=== PATIENT | male | born 1990 | race Caucasian/White ===

== ENCOUNTER 2024-01-16 13:59 | Emergency (ER) | payer SELFPAY ==
[2024-01-16 14:00] VITALS: BP 153/104; PULSE 96; RESP 20; TEMP 36.2; O2SAT 98
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
== END 2024-01-16 16:02 | disposition home or self-care (01) ==
PROVIDERS: Emergency Provider Emergency Medicine; Visit Provider Emergency Medicine
DX: L05.91 Pilonidal cyst without abscess (principal)
CPT/HCPCS: 10060; 99283

== ENCOUNTER 2024-02-15 19:01 | Emergency (ER) | payer MEDICAID, SELFPAY ==
[2024-02-15 19:02] VITALS: BP 169/100; PULSE 100; RESP 16; TEMP 36.8; O2SAT 100; BMI 28.8
--- NOTE | 2024-02-15 20:02 | EKG12_ITS ---
Test Reason : MHC Blood Pressure : / mmHG Vent. Rate : 080 BPM Atrial Rate : 080 BPM P-R Int : 176 ms QRS Dur : 072 ms QT Int : 364 ms P-R-T Axes : 052 054 037 degrees QTc Int : 419 ms Normal sinus rhythm Septal infarct , age undetermined Abnormal ECG Confirmed by Tigre Yee ([id number]), photographic editor BELINDA MARQUIS ([id number]) on 02/16/2024 11:14:55 AM Referred By: Confirmed By:Tigre Yee
--- NOTE | 2024-02-15 20:02 | CT_ITS ---
INDICATION: Change in mental status EXAMINATION: CT BRAIN - CT Head or Brain W/O Contrast Injection TECHNIQUE: Multiple axial images were obtained of the head without intravenous contrast. A radiation dose optimization technique was used for this scan. IV Contrast dosage and agent: None. COMPARISON: None. FINDINGS: BRAIN PARENCHYMA: No intra- or extra-axial hemorrhage. No evidence of acute infarct. No intracranial mass or mass effect. There is preservation of the silva/white matter interface. Posterior fossa structures are unremarkable. CSF SPACES: Appropriate for age. No hydrocephalus. Basal cisterns are patent. CALVARIUM, SKULL BASE, PARANASAL SINUSES AND MASTOID AIR CELLS: Scattered mild mucoperiosteal thickening. No discrete lytic or blastic abnormalities. ORBITS: Both globes, extraocular muscles, optic nerves and retrobulbar fat appear unremarkable. CT/Brain/Head without Contrast IMPRESSION: No acute intracranial findings. Electronically Signed: Trevin Christianson MD at 20:43 EDT ,
--- NOTE | 2024-02-15 20:12 | ED.RN ---
Crisis states they will be seeking placement.
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
[2024-02-15 20:21] LABS: Absolute Lymphocyte Count 2.46 X10^3/uL (0.83-4.51); Basophil# 0.02 X10^3/uL; Basophil% 0.2 % (0-1); Eosinophils% 2.1 % (0-5); Hematocrit 40.6 % (40-54); Hemoglobin 13.4 g/dL (13.0-16.5); Lymphocyte # 2.46 X10^3/ul (0.83-4.51); Lymphocyte % 25.7 % (19-41); Mean Corpuscular Hgb 28.9 pg (27.0-32.0); Mean Corpuscular Volume 87.7 fL (80-94); Mean Platelet Vol. 9.8 fl (6.2-12.0); Monocyte# 0.84 X10^3/uL; Monocyte% 8.8 % (0-10); NRBC Flagged by Analyzer 0 % (0-5); Neutrophil # 6.02 X10^3/uL (2.7-7.7); Neutrophil % 62.9 % (47-70); Platelet Count 287 K/mm3 (150-450); RBC Distribution Width CV 12.4 % (11.6-14.6); RBC Distribution Width SD 39.8 fl (35.1-43.9); Red Blood Count 4.63 M/mm3 (4.6-6.2); White Blood Count 9.6 K/mm3 (4.4-11.0)
[2024-02-15 20:39] LABS: Bacteria 0 SEEN /hpf (None Seen); Mucous, Urine 0 SEEN /hpf (<or=2+); Red Blood Cells-Urine 0 SEEN /hpf (0-5); Squamous Epithelial Cells - UA 0 SEEN /hpf (0-5); White Blood Cells 0 SEEN /hpf (0-5)
[2024-02-15 20:41] LABS: Alcohol, Blood (Medical)-Serum < 3.0 mg/dL
[2024-02-15 20:44] LABS: Amphetamine Urine VISTA NEGATIVE (<1000 ng/mL); Barbiturate Urine VISTA NEGATIVE (< 200 ng/mL); Benzodiazepine Urine VISTA NEGATIVE (< 200 ng/mL); Cocaine Urine VISTA NEGATIVE (< 300 ng/mL); Ecstacy Urine VISTA NEGATIVE (< 500 ng/mL); Methadone Urine VISTA NEGATIVE (< 300 ng/mL); PCP Urine VISTA NEGATIVE (< 25 ng/mL); THC Urine VISTA NEGATIVE (< 50 ng/mL); Vista UDS pH Range 6
[2024-02-15 20:51] LABS: ALB/GLOB Ratio 1.2 RATIO (0.9-2.4); AST(SGOT) 43 U/L (15-37); Alanine Aminotransfer ALT/SGPT 67 U/L (16-61); Albumin, Serum 3.8 g/dL (3.2-5.0); Alkaline Phosphatase 135 U/L (45-117); Anion Gap 3 (5-15); BUN 20 mg/dL (7-18); BUN/Creat Ratio 18.7 RATIO (10-20); Calcium,Total 8.6 mg/dL (8.5-10.1); Chloride 111 mmol/L (98-107); Creatinine, Serum 1.07 mg/dL (0.70-1.30); EST Glomerular Filtration Rate 85 mL/min (>60); Est Glom Filt Rate - Afr Amer 102 mL/min (>60); Estimated Creatinine Clearance 119.22 ml/min; Globulin 3.1 g/dL (2.2-4.2); Glucose 92 mg/dL (74-106); Potassium 3.5 mmol/L (3.5-5.1); Protein, Total 6.9 g/dL (6.4-8.2); Sodium Level 138 mmol/L (136-145)
[2024-02-15 21:22] LABS: Color, Urine Yellow (Yellow); Glucose, Dipstick Normal (Normal); Ketone-Dipstick Negative (Negative); Leukocyte Esterase-Dipstick Negative /ul (Negative); Nitrite-Dipstick Negative (Negative); Occult Blood-Urine Negative /ul (Negative); Protein-Dipstick Negative (Negative); Specific Gravity, Urine 1.005 (1.002-1.030); Urine Bilirubin Dipstick Negative (Negative); Urine Clarity Clear (Clear); Urine Urobilinogen Normal (Normal); Urine pH 6.5 (5.0 - 8.0)
--- NOTE | 2024-02-15 22:22 | ED.RN ---
Chart faxed to crisis
[2024-02-15 22:49] VITALS: BP 108/46; PULSE 80; RESP 18; O2SAT 97
--- NOTE | 2024-02-15 23:23 | ED.RN ---
Crisis called, will attempt to place at [facility]
--- NOTE | 2024-02-16 01:05 | ED.RN ---
pink slip and vs faxedx to counseling center
[2024-02-16 01:40] VITALS: PULSE 64; RESP 17; O2SAT 96
[2024-02-16 06:10] VITALS: BP 119/73; PULSE 82; RESP 14; O2SAT 98
[2024-02-16 06:36] VITALS: BP 119/73; PULSE 82; RESP 14; TEMP 36.5; O2SAT 98
[2024-02-20 15:08] LABS: Lamotrigine (Lamictal) Level < 1.0 ug/mL (2.0-20.0)
== END 2024-02-16 06:47 ==
PROVIDERS: Emergency Provider Emergency Medicine; Visit Provider Emergency Medicine
DX: F23 Brief psychotic disorder (principal); F17.210 Nicotine dependence, cigarettes, uncomplicated; Z91.148 Patient's other noncompliance with medication regimen for other reason
CPT/HCPCS: 70450; 80053; 80307; 80320; 81001; 82542; 85025; 93005; 99285; G0480

== ENCOUNTER 2024-09-01 17:48 | Emergency (ER) | payer MEDICAID, SELFPAY ==
[2024-09-01 17:50] VITALS: BP 168/76; PULSE 92; RESP 18; TEMP 36.6; O2SAT 100; BMI 34.3
[2024-09-01 18:23] LABS: Bacteria 0 SEEN /hpf (None Seen); Mucous, Urine 0 SEEN /hpf (<or=2+); Red Blood Cells-Urine 0 SEEN /hpf (0-5); Squamous Epithelial Cells - UA 0 SEEN /hpf (0-5); White Blood Cells 0 SEEN /hpf (0-5)
[2024-09-01 18:26] LABS: Glucose, Dipstick Normal (Normal); Ketone-Dipstick Negative (Negative); Leukocyte Esterase-Dipstick Negative /ul (Negative); Nitrite-Dipstick Negative (Negative); Occult Blood-Urine Negative /ul (Negative); Protein-Dipstick 15 mg/dl (Negative); Specific Gravity, Urine 1.015 (1.002-1.030); Urine Bilirubin Dipstick Negative (Negative); Urine Urobilinogen Normal (Normal); Urine pH 6.5 (5.0 - 8.0)
[2024-09-01 18:29] LABS: Absolute Lymphocyte Count 2.68 X10^3/uL (0.83-4.51); Absolute Neutrophil Count 4.2 X10^3/uL (2.0-7.7); Basophil# 0.03 X10^3/uL; Basophil% 0.4 % (0-1); Eosinophil# 0.22 X10^3/uL; Eosinophils% 2.7 % (0-5); Hematocrit 44.8 % (40-54); Hemoglobin 15.3 g/dL (13.0-16.5); Lymphocyte # 2.68 X10^3/ul (0.83-4.51); Mean Corp Hgb Conc 34.2 g/dL (32-36); Mean Corpuscular Hgb 29.5 pg (27.0-32.0); Mean Corpuscular Volume 86.5 fL (80-94); Mean Platelet Vol. 9.7 fl (6.2-12.0); Monocyte# 0.95 X10^3/uL; Monocyte% 11.7 % (0-10); NRBC Flagged by Analyzer 0 % (0-5); Neutrophil # 4.21 X10^3/uL (2.7-7.7); Neutrophil % 51.7 % (47-70); Platelet Count 349 K/mm3 (150-450); RBC Distribution Width CV 12.5 % (11.6-14.6); RBC Distribution Width SD 39.8 fl (35.1-43.9); Red Blood Count 5.18 M/mm3 (4.6-6.2); White Blood Count 8.1 K/mm3 (4.4-11.0)
[2024-09-01 18:38] LABS: Color, Urine Yellow (Yellow); Urine Clarity Clear (Clear)
[2024-09-01 18:43] LABS: ALB/GLOB Ratio 1.1 RATIO (0.9-2.4); AST(SGOT) 32 U/L (15-37); Alanine Aminotransfer ALT/SGPT 79 U/L (16-61); Albumin, Serum 3.9 g/dL (3.2-5.0); Alkaline Phosphatase 150 U/L (45-117); Anion Gap 6 (5-15); BUN 16 mg/dL (7-18); BUN/Creat Ratio 14.8 RATIO (10-20); Calcium,Total 8.8 mg/dL (8.5-10.1); Chloride 107 mmol/L (98-107); Creatinine, Serum 1.08 mg/dL (0.70-1.30); EST Glomerular Filtration Rate 83 mL/min (>60); Est Glom Filt Rate - Afr Amer 101 mL/min (>60); Estimated Creatinine Clearance 123.66 ml/min; Globulin 3.4 g/dL (2.2-4.2); Glucose 84 mg/dL (74-106); Lipase 51 U/L (13-75); Protein, Total 7.3 g/dL (6.4-8.2); Sodium Level 139 mmol/L (136-145)
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
[2024-09-01 19:20] VITALS: BP 156/78; PULSE 89; RESP 18; TEMP 36.6; O2SAT 100
[2024-09-01 19:26] LABS: Hepatitis B Surface Antibody Reactive; Hepatitis B Surface Antigen Non-Reactive (Nonreactive); Hepatitis C Antibody Non-Reactive (Nonreactive)
== END 2024-09-01 19:26 | disposition home or self-care (01) ==
PROVIDERS: Emergency Provider Emergency Medicine; Visit Provider Emergency Medicine
DX: R10.9 Unspecified abdominal pain (principal); R82.998 Other abnormal findings in urine; F90.9 Attention-deficit hyperactivity disorder, unspecified type; F43.10 Post-traumatic stress disorder, unspecified; Z87.891 Personal history of nicotine dependence
CPT/HCPCS: 80053; 81001; 83690; 85025; 86706; 86803; 87086; 87340; 99283; A4216

== ENCOUNTER 2025-02-17 15:11 | Emergency (ER) | payer SELFPAY ==
[2025-02-17 15:12] VITALS: BP 143/101; PULSE 105; RESP 18; TEMP 36.3; O2SAT 98; BMI 29.4
--- NOTE | 2025-02-17 15:33 | EDS_ITS ---
<Statement entered by Sravan Zapien DO - 02/17/25 19:48> Patient was seen and examined with physician licensed physical therapy assistant Jazmin All components of the history and physical confirmed and agreed. History of present illness and physical exam: Patient is a 34-year-old male with past medical history of bipolar, psychosis with several hospitalizations. He states that for the past couple weeks he has had auditory and visual hallucinations and feels that someone is drugging his food. He states that he feels that someone is stalking him and he states that he is reaching out to his mother and cannot get a hold of her. He notes that he is concerned that someone is trying to kill her. 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 He states that he does not recall the last time he was hospitalized. Denies any suicidal homicidal ideations. Review of systems: Agreed above Physical exam: Agree with above MDM Patient is a 34-year-old male who presents to the emergency department for concern for acute psychosis and paranoia. On the differential diagnose includes Melamin to paranoid schizophrenic, bipolar, anxiety, depression. Patient will be medically cleared and then crisis will evaluate. Patient's CBC reviewed showed no evidence leukocytosis white blood count normal at 9.4, he was 15.8, platelet count of 302. Patient sodium normal 137, potassium normal at 3.8, creatinine normal at 0.98. Patient AST and ALT are 44 and 59 respectively. Patient drug screen was presumptive positive for cannabis however the rest of this was negative, alcohol level less than 10. Patient's EKG showed sinus rhythm with a rate of 77 bpm. Patient was originally given IM Haldol 5 mg. Crisis came in and evaluated the patient and they will work on placing the patient. Patient will be placed on risperidone as he was prescribed this in the past. Crisis states that they will come back tomorrow morning and evaluate the patient as well again.. Patient case will be signed out to overnight provider Final impression: Paranoia Visual and auditory hallucinations History of bipolar disorder Disposition: Patient will be further observed until he can be placed by crisis Supervising attending attestation: Sravan Zapien D.O. HPI HPI - Psych History of Present Illness Chief Complaint: Mental Health Narrative Narrative: 34-year-old male reportedly has a history of bipolar and psychosis with several hospitalizations. He states the last couple weeks he has had auditory and visua l hallucinations. He thinks someone is drugging his food. He thinks someone is stalking him. He tries to call his mom and cannot reach her. She has called him multiple times but when he picks up the phone no one is there and he thinks someone is trying to kill her. He works at [email or web address], a [employer] warehouse, and was asked to resign last week because he was going crazy. He does not currently take any medications. Records show he was on Lamictal in the past. He does not remember the last time he was hospitalized. He drank alcohol last night to try sleep. He smokes cigarettes. He denies other drug use. He denies being suicidal or homicidal. [facility] Medical History ADHD PTSD (post-traumatic stress disorder) Home Medications ?Medication ?Instructions ?Recorded ?Last Taken ?Type NK 09/01/24 Unknown History Allergy/AdvReac Type Severity Reaction Status Date / Time diphenhydramine Allergy Severe Anaphylaxis Verified 02/17/25 15:14 Surgical History History of ankle surgery Social History Smoking Status: Current every day smoker tobacco type: cigarettes ROS ROS ED ROS Narrative Constitutional: Negative for fever, chills, malaise. CVS: Negative for chest pain. Respiratory: Negative for shortness of breath. GI: Negative for abdominal pain, nausea, vomiting. EXAM Physical Exam Narrative Exam Narrative: CONST: Patient sitting in no acute distress. EYES: Normal inspection. NECK: Normal inspection. RESP: No respiratory distress, CTAB. CVS: Regular rate and rhythm, no murmur, no gallop. SKIN: Color normal, no rash, warm, dry, intact. EXTREMITIES: Normal appearance, no pedal edema. NEURO: Alert and answering questions appropriately. PSYCH: Well-groomed. Anxious and scattered, often expressing paranoid delusions. Const Vital Signs: 02/17/25 15:12 Temperature 97.3 F L Temperature Source Temporal Pulse Rate 105 H Respiratory Rate 18 Blood Pressure 143/101 H Blood Pressure Mean 115 Pulse Ox 98 MDM MDM MDM Narrative Medical decision making narrative: Differential includes but not limited to anxiety, depression, bipolar, psychosis Consults: Crisis counselor 34-year-old male is currently unmedicated with history of bipolar and psychosis presenting with a few weeks of auditory and visual hallucinations. Although he reports he has hallucinations he does not seem to have insight that his paranoid delusions are not real. He is not suicidal or homicidal. He appears well and nontoxic. Vital stable. Screening labs were obtained. CBC is within normal limits. CMP shows normal electrolytes. Glucose 142. CO2 is 19.8 but gap is normal. Liver enzymes are slightly elevated consistent with his baseline. Urine tox positive for cannabinoids. Alcohol negative. I pink slipped the patient because he is having paranoid delusions/acute psychosis and requires inpatient evaluation and treatment. He did become slightly agitated and wanted to leave the department so was given IM Haldol 5 mg. Crisis is working on placement but he does not have insurance so it may be an extended wait. He was started on risperidone. History & Record Review Discussion w/independent historian: Patient Additional record(s) reviewed:: Prior ED visit and Prior labs Lab Data Attestation: I reviewed the patient's lab results. Labs: Laboratory Results - last 24 hr 02/17/25 15:44 WBC 9.4 RBC 5.34 Hgb 15.8 Hct 44.9 MCV 84.1 MCH 29.6 MCHC 35.2 RDW Std Deviation 37.0 RDW Coeff of Benito 12.3 Plt Count 302 MPV 10.1 Immature Gran % (Auto) 0.300 Neut % (Auto) 69.1 Lymph % (Auto) 22.4 [place] % (Auto) 6.9 Eos % (Auto) 1.2 Baso % (Auto) 0.1 Absolute Neuts (auto) 6.5 Absolute Lymphs (auto) 2.10 Nucleated RBC % 0 Sodium 137 Potassium 3.8 Chloride 103 Carbon Dioxide 19.8 L Anion Gap 15 BUN 16 Creatinine 0.98 Estim Creat Clear Calc 126.62 Est GFR (MDRD) Non-Af 104 BUN/Creatinine Ratio 16.6 Glucose 142 H Calcium 8.7 Total Bilirubin 0.69 AST 44 H ALT 59 H Alkaline Phosphatase 156 H Total Protein 7.5 Albumin 4.5 Globulin 3.0 Albumin/Globulin Ratio 1.5 Urine Opiates Screen NEGATIVE U Buprenorphine Qual NEGATIVE Ur Oxycodone Screen NEGATIVE Urine Methadone Screen NEGATIVE Urine Fentanyl Screen NEGATIVE Ur Barbiturates Screen NEGATIVE Ur Phencyclidine Scrn NEGATIVE Ur Amphetamines Screen NEGATIVE U Benzodiazepines Scrn NEGATIVE Urine Cocaine Screen NEGATIVE U Cannabinoids Screen PRESUMPTIVE POSITIVE Ethyl Alcohol < 10.1 EKG Initial EKG: Attestation: I personally reviewed and interpreted this EKG as follows: Interpretation: Sinus Rhythm and No Acute Injury Pattern Comments: Normal sinus rhythm with sinus arrhythmia at 77 bpm No acute ischemic changes Discharge Plan Triage Chief Complaint: Mental Health ED Midlevel Provider: Jazmin Roblero ED Provider: Sravan Zapien Dx/Rx/DC Orders Clinical Impression: Psychosis, Paranoid delusion, History of bipolar disorder Prescriptions: No Action NK Primary Care Provider: Care Physician,No Primary Referrals: Care Physician,No Primary [Primary Care Provider] - Print Language: Romanian
--- NOTE | 2025-02-17 15:47 | ED.RN ---
This Rn spoke with patient who expressed concerns his mother was being harmed. This Rn got mother, Keyonna's number from him and called her and let her know pt. was here and safe and that he was going to be under a pink slip. Mother voiced understanding and stated she hoped he would continue to allow up to update her as he has not allowed that in the past.
--- OUTSIDE RECORDS SUMMARY | 2025-02-17 16:00 | XMS RPT_ITS | CCD ---
Author Organization [facility] Care Team Providers Care Mud Engineer Name Role Phone Unavailable Primary Care Provider Vernon Brooke Attending Unavailable Care Physician, No Primary Primary Care Unava ilable Sravan Zapien Attending Unavailable Care Physician, No Primary Primary Care Unava ilable Noah Leach Attending Unavailable Care Physician, No Primary Primary Care Unava ilable Allergies Allergy Classification Reported Allergen(s) Allergy Type Date of Onset Reaction(s) Facility (3 sources) diphenhydrAMINE; Translations: [DIPHENHYDRAMINE] Drug Allergy 5 Hives, Swelling, Anaphylaxis [facility] (1 source) diphenhydrAMINE Drug Allergy 5 [facility] Repository Problems Active Problems Problem Classification Problem Date Documented Da te Episodic/Chronic Abdominal pain (2 sources) Right upper quadrant pain; Translations: [Right upper quadrant pain] Onset: 09-24-2024 08-28-2024 Episodic Genitourinary symptoms and ill-defined conditions (1 source) Urgent desire to urinate; Translations: [Urgency of urination] 08-28-2024 Episodic Other upper respiratory infections (1 source) Acute upper respiratory infection; Translations: [Acute upper respiratory infection, unspecified] 09-24-2024 Episodic Skin and subcutaneous tissue infections (1 source) Pilonidal cyst without abscess; Translations: [Pilonidal cyst without abscess] Onset: 12-13-2024 Episodic Past or Other Problems Problem Classification Problem Date Documented Da te Episodic/Chronic Schizophrenia and other psychotic disorders (1 source) Brief psychotic disorder; Translations: [Brief psychotic disorder] Onset: 03-01-2024 Episodic Results Test Name Value Interpretation Reference Range Facil ity CNOVon 09-24-2024 CNOV Office Visit (UCWSTR ) TC GARCIA ([id number]) 1990 M Date Time Provider Department 09/24/24 3:45 PM ELAINE SPENCER [facility] During your visit today, we recorded the following information about you: Temperature Pulse Respiration Blood pressure 97.5 degrees 90/minute 16/minute 132/84 Weight 110.4 kg Elaine Spencer, WEBSITE/BLOG EDITOR.DRILL FOREMAN 09/24/2024 3:48 PM Signed CC: Patient presents with: Cough: Cough, green mucus and sinus pressure x 3 days HPI: Tc Garcia is a 34 year old male who presents to the office with complaint of head congestion and cough, nonproductive for a few days. Symptoms are staying the same. Associated symptoms includes headache, body aches, and fever. Denies wheezing, dyspnea, nausea, vomiting , and diarrhea. Treatments tried include nothing so far. with no relief of symptoms. Sick contacts: unknown. Smoker: quit a month ago Seasonal/environmenta l allergies: No The ROS is otherwise negative. The patient's pmh, medications, allergies, and past visits are reviewed. PHYSICAL EXAM: BP 132/84 Pulse 90 Temp 36.4 ?C (97.5 ?F) (Tympanic) Resp 16 Wt 110.4 kg (243 lb 6.2 oz) SpO2 98% General appearance: alert, cooperative, pleasant, in no acute distress Head: Normocephalic Eyes: EOM's intact, conjunctiva pink and moist, no icterus, sclera white, non-injected Ears: Right ear: External ear/canal- Normal, TM - clear with good landmarks. Left ear: External ear/canal- Normal, TM - clear with good landmarks Oropharynx:moist without lesions, No erythema, exudates or tonsillar hypertrophy. Heart: Negative. RRR without obvious murmur, gallop, or rubs. No ectopy. Lungs: clear to auscultation, without rales or wheeze, good air exchange History reviewed. No pertinent past medical history. No past surgical history on file. ALLERGIES Benadryl [Diphenhydramine] MEDICATIONS No prescriptions on file. No family history on file. Social History Tobacco Use Smoking status: Never Smokeless tobacco: Never ASSESSMENT/PLAN: 1. URI, acute - ICD9: 465.9, ICD10: J06.9 Supportive therapy suspect viral at this time. No viral testing. . Potential red flag symptoms discussed with the patient. Reviewed appropriate action plan to take if red flag symptoms occur. Patient agreeable to treatment plan. Elaine Spencer APRN.DRILL FOREMAN Allergies As of Date: 09/24/2024 Noted Allergy Reaction BENADRYL (DIPHENHYDRAMINE) 08/28/2024 4 - Hives 7 - Swelling 10 - Anaphylaxis Date Reviewed: 09/24/2024 Reviewed by: Ro Escudero LPN - Fully Assessed Reason for Visit: Cough [28] Cmt: Cough, green mucus and sinus pressure x 3 days Primary Visit Diagnosis:URI, acute [J06.9] Problem List As Of Date: 09/24/2024 (None) Letter Text Letter Text Encounter Status:Closed by ELAINE SPENCER on 09/24/24 Normal [facility] Urine Cultureon 09-02-2024 [facility] CLEAN CATCH SAMPLE. NOT A CATH SAMPLE. Culture exhibits no growth. Normal [facility] Comment on above: Performed By: #### L 400.0001, M100.2200 #### [facility] Laboratory [address] [place], [address] CBC W/Diff, Automatedon 08-22 Absolute Lymph 2.68 X10 3/uL Normal 0.83-4.51 [facility] Comment on above: Performed By: #### L 500.4050, L100.0100, L501.2450 ####[facility] [address] [place], [address] Absolute Neut 4.2 X10 3/uL Normal 2.0-7.7 [facility] Comment on above: Performed By: #### L 500.4050, L100.0100, L501.2450 ####[facility] [address] [place], [address] Basophils/100 WBC (Bld) 0.4 % Normal 0-1 [facility] Comment on above: Performed By: #### L 500.4050, L100.0100, L501.2450 ####[facility] [address] [place], [address] Eosinophils/100 WBC (Bld) 2.7 % Normal 0-5 [facility] Comment on above: Performed By: #### L 500.4050, L100.0100, L501.2450 ####[facility] [address] [place], [address] Erythrocyte distribution width (RBC) [Ratio] 12.5 % Normal 11.6-14.6 [facility] Comment on above: Performed By: #### L 500.4050, L100.0100, L501.2450 ####[facility] [address] [place], [address] Hematocrit (Bld) [Volume fraction] 44.8 % Normal 40-54 [facility] Comment on above: Performed By: #### L 500.4050, L100.0100, L501.2450 ####[facility] [address] [place], [address] Hemoglobin (Bld) [Mass/Vol] 15.3 g/dL Normal 13.0-16.5 [facility] Comment on above: Performed By: #### L 500.4050, L100.0100, L501.2450 ####[facility] [address] [place], [address] IG% 0.500 Normal 0.0-0.9 [facility] Comment on above: Result Comment: IG% - Immature Granulocytes (promyelocytes, myelocytes and metamyelocytes) > 1% indicates that a LEFT SHIFT is Present. Performed By: #### L 500.4050, L100.0100, L501.2450 ####[facility] [address] [place], [address] Lymphocytes/100 WBC (Bld) 33.0 % Normal 19-41 [facility] Comment on above: Performed By: #### L 500.4050, L100.0100, L501.2450 ####[facility] [address] [place], [address] MCH (RBC) [Entitic mass] 29.5 pg Normal 27.0-32.0 [facility] Comment on above: Performed By: #### L 500.4050, L100.0100, L501.2450 ####[facility] [address] [place], [address] MCHC (RBC) [Mass/Vol] 34.2 g/dL Normal 32-36 [facility] Comment on above: Performed By: #### L 500.4050, L100.0100, L501.2450 ####[facility] [address] [place], [address] MCV (RBC) [Entitic vol] 86.5 fL Normal 80-94 [facility] Comment on above: Performed By: #### L 500.4050, L100.0100, L501.2450 ####[facility] [address] [place], [address] Monocytes/100 WBC (Bld) 11.7 % High 0-10 [facility] Comment on above: Performed By: #### L 500.4050, L100.0100, L501.2450 ####[facility] [address] [place], [address] Neutrophils/100 WBC (Bld) 51.7 % Normal 47-70 [facility] Comment on above: Performed By: #### L 500.4050, L100.0100, L501.2450 ####[facility] [address] [place], [address] Nucleated RBC (Bld) [#/Vol] 0 10*3/uL Normal 0-5 [facility] Comment on above: Performed By: #### L 500.4050, L100.0100, L501.2450 ####[facility] [address] [place], [address] Platelet mean volume (Bld) [Entitic vol] 9.7 fL Normal 6.2-12.0 [facility] Comment on above: Performed By: #### L 500.4050, L100.0100, L501.2450 ####[facility] [address] [place], [address] Platelets (Bld) [#/Vol] 349 10*3/uL Normal 150-450 [facility] Comment on above: Performed By: #### L 500.4050, L100.0100, L501.2450 ####[facility] [address] [place], [address] RBC (Bld) [#/Vol] 5.18 10*6/uL Normal 4.6-6.2 [facility] Comment on above: Performed By: #### L 500.4050, L100.0100, L501.2450 ####[facility] [address] [place], [address] RDW SD 39.8 fl Normal 35.1-43.9 [facility] Comment on above: Performed By: #### L 500.4050, L100.0100, L501.2450 ####[facility] [address] [place], [address] WBC (Bld) [#/Vol] 8.1 10*3/uL Normal 4.4-11.0 [facility] Comment on above: Performed By: #### L 500.4050, L100.0100, L501.2450 ####[facility] [address] [place], [address] Comprehensive Metabolic Prof ilon 09-01-2024 Albumin [Mass/Vol] 3.9 g/dL Normal 3.2-5.0 [facility] Comment on above: Performed By: #### L 500.4050, L100.0100, L501.2450 ####[facility] [address] [place], [address] Albumin/Globulin [Mass ratio] 1.1 {ratio} Normal 0.9-2.4 [facility] Comment on above: Performed By: #### L 500.4050, L100.0100, L501.2450 ####[facility] [address] [place], [address] ALK P 150 U/L High 45-117 [facility] Comment on above: Performed By: #### L 500.4050, L100.0100, L501.2450 ####[facility] [address] [place], [address] ALT [Catalytic activity/Vol] 79 U/L High 16-61 [facility] Comment on above: Performed By: #### L 500.4050, L100.0100, L501.2450 ####[facility] [address] [place], [address] AST [Catalytic activity/Vol] 32 U/L Normal 15-37 [facility] Comment on above: Performed By: #### L 500.4050, L100.0100, L501.2450 ####[facility] [address] [place], [address] Bilirubin [Mass/Vol] 0.30 mg/dL Normal 0.20-1.00 [facility] Comment on above: Result Comment: For patients on eltrombopag therapy, use of Dimension [place] TBIL is not recommended. Performed By: #### L 500.4050, L100.0100, L501.2450 ####[facility] [address] [place], [address] BUN/CRE 14.8 RATIO Normal 10-20 [facility] Comment on above: Performed By: #### L 500.4050, L100.0100, L501.2450 ####[facility] [address] [place], [address] CA,Total 8.8 mg/dL Normal 8.5-10.1 [facility] Comment on above: Performed By: #### L 500.4050, L100.0100, L501.2450 ####[facility] [address] [place], [address] Chloride [Moles/Vol] 107 mmol/L Normal 98-107 [facility] Comment on above: Performed By: #### L 500.4050, L100.0100, L501.2450 ####[facility] [address] [place], [address] CO2 [Moles/Vol] 26.0 mmol/L Normal 21.0-32.0 [facility] Comment on above: Performed By: #### L 500.4050, L100.0100, L501.2450 ####[facility] [address] [place], [address] Creatinine [Mass/Vol] 1.08 mg/dL Normal 0.70-1.30 [facility] Comment on above: Result Comment: The validity of the calculated GFR GFRAA in patients over 70 years has not been determined. Clinical correlation is essential. Performed By: #### L 500.4050, L100.0100, L501.2450 ####[facility] [address] [place], [address] ECRCL 123.66 ml/min Normal [facility] Comment on above: Performed By: #### L 500.4050, L100.0100, L501.2450 ####[facility] [address] [place], [address] EST GFR - AA 101 mL/min Normal >60 [facility] Comment on above: Result Comment: Afri can [place] GFR Calc Performed By: #### L 500.4050, L100.0100, L501.2450 ####[facility] [address] [place], [address] GAP 6 Normal 5-15 [facility] Comment on above: Performed By: #### L 500.4050, L100.0100, L501.2450 ####[facility] [address] [place], [address] GFR/1.73 sq M.predicted among non-blacks MDRD (S/P/Bld) [Vol rate/Area] 83 mL/min/{1.73_m2} Normal >60 [facility] Comment on above: Result Comment: Non- GFR Calc Performed By: #### L 500.4050, L100.0100, L501.2450 ####[facility] [address] [place], [address] Globulin (S) [Mass/Vol] 3.4 g/dL Normal 2.2-4.2 [facility] Comment on above: Performed By: #### L 500.4050, L100.0100, L501.2450 ####[facility] [address] [place], [address] Glucose [Mass/Vol] 84 mg/dL Normal 74-106 [facility] Comment on above: Performed By: #### L 500.4050, L100.0100, L501.2450 ####[facility] [address] [place], [address] Potassium [Moles/Vol] 4.0 mmol/L Normal 3.5-5.1 [facility] Comment on above: Performed By: #### L 500.4050, L100.0100, L501.2450 ####[facility] [address] [place], [address] Sodium [Moles/Vol] 139 mmol/L Normal 136-145 [facility] Comment on above: Performed By: #### L 500.4050, L100.0100, L501.2450 ####[facility] [address] [place] [place], [address] T PROT 7.3 g/dL Normal 6.4-8.2 [facility] Comment on above: Performed By: #### L 500.4050, L100.0100, L501.2450 ####[facility] [address] [place], [address] Urea nitrogen [Mass/Vol] 16 mg/dL Normal 7-18 [facility] Comment on above: Performed By: #### L 500.4050, L100.0100, L501.2450 ####[facility] [address] [place], [address] Emergency Department Summary on 09-01-2024 Emergency Department Summary [facility] Medical Records Department [address] [place] [address] Emergency Department Summary 09/01/24 MR#: [id number] Acct: [id number] Name: TC GARCIA SEJAL Rep #: [id number] : 1990 34 From: Sravan Zapien DO PCP: Care Physician,No Primary Status:REG ER Location: ED HPI History of Present Illness Chief Complaint: Flank Pain Narrative Narrative: Patient is a 34-year-old male with no known significant past medical history who presents to the emergency department the chief complaint of flank pain. Patient states this has been going on for approximately a month and now. He states that for the past month he has also had foul-smelling urine. Patient denies any fevers. Patient states that he has not seen a doctor as he only has 1 to 2 days off a week and they are usually closed therefore he has not been evaluated. Patient denies a history of IV drug use, denies alcohol use and states that he stopped smoking approximately 2 weeks ago. He states that he recently got over a bout with flu. He also states that he wants tested for hepatitis as his ex was being treated for that. Patient denies any urethral discharge [facility] Medical History ADHD PTSD (post-traumatic stress disorder) Home Medications ???Medication ???Instructions ???Recorded ???Last Taken ???Type NK 09/01/24 Unknown History Allergy/AdvReac Type Severity Reaction Status Date / Time diphenhydramine Allergy Severe Anaphylaxis Verified 09/01/24 17:49 Surgical History History of ankle surgery Social History Smoking Status: Current every day smoker tobacco type: cigarettes ROS ROS ED ROS Narrative Constitutional: Denies fevers, chills, headaches, lightness, dizziness Eyes: Denies change in vision double vision blurry vision Cardiovascular: Denies chest pain or palpitations Respiratory: Denies coughing wheezing shortness of breath Abdomen: Denies abdominal pain nausea vomit diarrhea : Complains of foul-smelling urine as noted above denies painful urination or hematuria Neurological: Denies numbness, weakness, tingling Musculoskeletal: Complains of right flank pain as noted above denies any history of kidney stones Skin: Denies any rashes or lesions EXAM Physical Exam Narrative Exam Narrative: General: Patient lying in bed rest comfortably did not appear to be acute distress Head: Atraumatic, normocephalic Eyes: PERRL bilaterally, EOMI bilaterally, no conjunctival injection noted Neck: Soft, supple, trachea midline Cardiovascular: Regular rate and rhythm Respiratory: Clear to auscultation bilaterally Abdomen: Soft, nondistended, nontender to palpation, bowel sounds present x 4 Musculoskeletal: No CVA tenderness noted on exam, no tenderness palpation the midline of the thoracolumbar spine Extremities: +5/5 strength noted in the bilateral upper and lower extremities, radial pulses +2/4 in the bilateral per extremities Neurological: Patient following commands knew that he was at [facility] year is 2024 sensation grossly intact Skin: Warm, dry, intact no rashes or lesions noted Const Vital Signs: 09/01/24 17:50 Temperature 97.8 F Temperature Source Oral Pulse Rate 92 Respiratory Rate 18 Blood Pressure 168/76 H Blood Pressure Mean 106 Pulse Ox 100 Oxygen Delivery Method Room Air MDM MDM MDM Narrative Medical decision making narrative: Patient is a 34-year-old male who presents to the Emergency Department with a chief complaint of flank pain and foul-smelling urine for the last month. On the differential diagnose includes but not limited to nephrolithiasis, urolithiasis, pyelonephritis, UTI, STD, musculoskeletal strain. Once workup is obtained reviewed he will be reevaluated. Patient CBC reviewed and was largely unremarkable no evidence of leukocytosis white blood count normal at 8.1, hemoglobin stable 15.3, platelet count was noted be normal at 349. Patient sodium 1 normal at 139, potassium normal at 4, creatinine normal at 1.08. Patient's AST and ALT were 32 and 79 respectively. Patient lipase normal at 51. Patient urinalysis reviewed showed no blood and no evidence of infection. On repeat examination at 1916 patient has no pain on palpation his abdomen still no CVA tenderness noted on exam. Patient has not had any urethral discharge he states and no concern for STI at this point time. Patient will be given referral to a primary care physician and was encouraged to decrease his intake of caffeine as he states that he drinks multiple energy drinks a day and only drinks approximately 12 to 24 ounces of water. He was encouraged to return with worsening symptoms or oth (more content not included)... Normal [facility] Hepatitis B Surface Antibody on 09-01-2024 HEP B Surf Ab Reactive Normal [facility] Comment on above: Order Comment: Reaso n for Exam: pt concernReason for Exam: Hepatitis Screen Result Comment: Non Reactive: Inconsistent with immunity less than <10 mIU/mL Reactive: Consistent with immunity greater than or equal to 10 mIU/mL Performed By: #### L 3890.6100, L3890.6200, L3890.6300 ####[facility] [address] [place], [address] Hepatitis B Surface Antigeno n 09-01-2024 HEP B Surf Ag Non-Reactive Normal Nonreactive [facility] Comment on above: Order Comment: Reaso n for Exam: pt concernReason for Exam: Hepatitis Screen Performed By: #### L 3890.6100, L3890.6200, L3890.6300 ####[facility] [address] [place], [address] Hepatitis C Antibodyon 09-01 Hepatitis C AB Non-Reactive Normal Nonreactive [facility] Comment on above: Order Comment: Reaso n for Exam: pt concernReason for Exam: Hepatitis Screen Result Comment: Non Reactive: < 0.8 Equivocal: >/= 0.8 to < 1.0 Reactive: >/= 1.0 The CDC requires that a reactive/equivocal HCV antibody result be sent out for confirmation. HCV Quant by PCR testing. Performed By: #### L 3890.6100, L3890.6200, L3890.6300 ####[facility] [address] [place], [address] Lipaseon 09-01-2024 Lipase [Catalytic activity/Vol] 51 U/L Normal 13-75 [facility] Comment on above: Result Comment: Kalyan gibbs note: LIPASE revised reference range effective 22. New Lipase methodology. Expected to produce lower values than the previous assay method. NEW Reference Range: 13 - 75 U/L Performed By: #### L 500.4050, L100.0100, L501.2450 ####[facility] [address] [place], [address] Urinalysis, Completeon 09-01 BACTERIA 0 SEEN Normal None Seen [facility] Comment on above: Order Comment: CLEAN CATCH Performed By: #### L 400.0001, M100.2200 #### [facility] [address] [place], [address] EPI,SQUAMOUS 0 SEEN Normal 0-5 [facility] Comment on above: Order Comment: CLEAN CATCH Performed By: #### L 400.0001, M100.2200 #### [facility] [address] [place], [address] Mucus Ql (Urine sed) 0 SEEN Normal [facility] Comment on above: Order Comment: CLEAN CATCH Performed By: #### L 400.0001, M100.2200 #### [facility] [address] [place], [address] RBC 0 SEEN Normal 0-5 [facility] [facility] Comment on above: Order Comment: CLEAN CATCH Performed By: #### L 400.0001, M100.2200 #### [facility] [address] [place], [address] WBC 0 SEEN Normal 0-5 [facility] Comment on above: Order Comment: CLEAN CATCH Performed By: #### L 400.0001, M100.2200 #### [facility] [address] [place], [address] CNOVon 08-28-2024 CNOV Office Visit (UCTR ) TC GARCIA ([id number]) 1990 M Date Time Provider Department 08/28/24 5:15 PM THUAN SOTO [facility] During your visit today, we recorded the following information about you: Temperature Pulse Respiration Blood pressure 98.2 degrees 85/minute 18/minute 155/80 Weight 110.9 kg Thuan Soto PA-C 08/28/2024 6:04 PM Signed This note was created using [employer]. Subjective cT Garcia is a 34 year old male. Patient is a 34-year-old male who complains of worsening right upper quadrant abdominal pain that he has been experiencing for the past 1 day. Patient denies nausea, vomiting or diarrhea. Patient reports no recent fever, chills or myalgia. Patient denies history of GERD, hiatal hernia, gallbladder disease, irritable bowel syndrome, diverticulitis or other GI conditions. Patient states that his previous girlfriend was positive for hepatitis C and he is now concerned that he is developing same. Abdominal Pain Review of Systems Gastrointestinal: Positive for abdominal pain. All other systems reviewed and are negative. Objective BP 155/80 Pulse 85 Temp 36.8 ?C (98.2 ?F) Resp 18 Wt 110.9 kg (244 lb 7.8 oz) SpO2 99% Physical Exam Vitals and nursing note reviewed. Constitutional: Appearance: Normal appearance. He is normal weight. HENT: Head: Normocephalic and atraumatic. Right Ear: External ear normal. Left Ear: External ear normal. Nose: Nose normal. Mouth/Throat: Mouth: Mucous membranes are moist. Pharynx: Oropharynx is clear. Eyes: General: No scleral icterus. Extraocular Movements: Extraocular movements intact. Conjunctiva/sclera: Conjunctivae normal. Pupils: Pupils are equal, round, and reactive to light. Cardiovascular: Rate and Rhythm: Normal rate. Pulses: Normal pulses. Heart sounds: Normal heart sounds. Pulmonary: Effort: Pulmonary effort is normal. Breath sounds: Normal breath sounds. Abdominal: General: Abdomen is flat. Palpations: Abdomen is soft. Tenderness: There is abdominal tenderness. Musculoskeletal: Cervical back: Normal range of motion and neck supple. Skin: General: Skin is warm and dry. Capillary Refill: Capillary refill takes less than 2 seconds. Neurological: General: No focal deficit present. Mental Status: He is alert and oriented to person, place, and time. Psychiatric: Mood and Affect: Mood normal. Behavior: Behavior normal. Thought Content: Thought content normal. Judgment: Judgment normal. Assessment and Plan Physical exam findings as noted above. Urinalysis was performed by staff prior to my evaluating the patient and urinalysis is noted to be completely negative. Patient was immediately advised that he requires evaluation in an emergency department as he will require laboratory testing and CT scan imaging. Patient verbalizes understanding of this recommendation and states he will report to the emergency department at [facility]. CLINICAL IMPRESSION: RUQ Abdominal Pain ASSESSMENT/PLAN: 1. Urgency of urination - ICD9: 788.63, ICD10: R39.15 (primary diagnosis) - UA DIP, URINE (POC) 2. RUQ abdominal pain - ICD9: 789.01, ICD10: R10.11 Thuan Soto PA-C Allergies As of Date: 08/28/2024 Noted Allergy Reaction BENADRYL (DIPHENHYDRAMINE) 08/28/2024 4 - Hives 7 - Swelling 10 - Anaphylaxis Date Reviewed: 08/28/2024 Reviewed by: Sylvia Lino MA - Fully Assessed Reason for Visit: Abdominal Pain [1] Cmt: R side abd pain with fatigue and intermittent fevers x2 months Primary Visit Diagnosis:Urgency of urination [R39.15] Other Visit Diagnosis:RUQ abdominal pain [R10.11] Order(s):UA DIP, URINE (POC) [6582578] Order #: [id number] #:[id number] Problem List As Of Date: 08/28/2024 (None) Level of Service: OFFICE/OUTPATIENT [facility] 30 MINUTES [93937] Encounter Status:Closed by THUAN SOTO on 08/28/24 Normal [facility] UA DIP, URINE (POC)on 2024 BILIRUBIN UA (POCT) Negative Negative [facility] CLARITY UA (POCT) Clear [facility] COLOR UA (POCT) Yellow [facility] GLUCOSE UA (POCT) Negative Negative mg/dL [facility] Hemoglobin Ql (U) Negative Negative [facility] KETONE UA (POCT) Negative Negative mg/dL [facility] LEUKOCYTES UA (POCT) Negative Negative [facility] NITRITE UA (POCT) Negative Negative [facility] PH UA (POCT) 6.0 4.5 - 8.0 [facility] Protein Ql (U) Negative Negative mg/dL [facility] SPECIFIC GRAVITY UA (POCT) 1.025 1.005 - 1.030 [facility] UROBILINOGEN UA (POCT) 0.2 Normal E.U./dL [facility] Location:[address], [place], [address] [facility] POINT OF CARE [facility] Lamotrigine (Lamictal) Level on 02-20-2024 LAMOTRIGINE < 1.0 Low 2.0-20.0 [facility] Comment on above: Result Comment: Dete ction Limit = 1.0 Performed at: - [facility] [address], [place], [place] [id number] Engine Mechanic: Alfonzo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 Urgency of urination (Primary Dx); RUQ abdominal pain Start: 02-15-2024 End: 02-16-2024 Emergency department patient visit Noah Leach Facility:[facility] Start: 01-16-2024 End: 01-16-2024 Emergency department patient visit Vernon Medina Facility:[facility] Procedures Date Procedure Procedure Detail Performing Clinician Start: 08-28-2024 Urnls dip stick/tabl et rgnt auto w/o microscopy Thuan Soto PA-C Work Phone: Plan of Treatment Date Care Activity Detail Author Start: 04-22-2024 Covid-19 Vaccine () Covid-19 Vaccine ( season) [facility] Start: 04-22-2024 Influenza vaccination Influenza Vacc ine (#1) [facility] Start: 2010 Hepatitis B Vaccine (1 of 3 - 19+ 3-dose series) Hepatitis B Vaccine (1 of 3 - 19+ 3-dose series) [facility] Start: 2010 Urine microalbumin profile DTa P,Tdap,Td Vaccine (1 - Tdap) [facility] Start: 2009 Anxiety Screening Anxiety Screening [facility] Start: 2009 Depression Screening Depression Scre ening [facility] Start: 2009 Hepatitis C screening Hepatitis C Sc piedad [facility] Start: 2009 HIV screening HIV Screening Marta penny [facility] Payers Date Payer Category Payer Private Health Insurance HUMANA HUMANA MEDICAID [facility] [id number] 2024-Present [address] [address] [place] [address] Medicaid [id number] 2024 Medicaid [id number] 2024 Self-pay Unknown [id number] Unknown [id number] Unknown [id number] Social History Date Type Detail Facility Start: 08-28-2024 Tobacco smoking stat us NHIS Never smoked tobacco [facility] Start: 08-28-2024 Tobacco use and exposure Smoke less tobacco non-user [facility] Start: 08-28-2024 End: 09-24-2024 History of Social function [facility] Start: 08-28-2024 End: 09-24-2024 Tobacco use panel [facility] Start: 1990 Sex assigned at Not on file C [facility] Progress note 09-24-2024 Note Date & Type Note Facility 09-24-2024 Note HNO ID: [id number] Author: ELAINE SPENCER APRN.DRILL FOREMAN Service: ? Author Type: Nurse Practitioner Type: Progress Notes Filed: 09/24/2024 15:48 Note Text: CC: Patient presents with: Cough: Cough, green mucus and sinus pressure x 3 days HPI: Tc Garcia is a 34 year old male who presents to the office with complaint of head congestion and cough, nonproductive for a few days. Symptoms are staying the same. Associated symptoms includes headache, body aches, and fever. Denies wheezing, dyspnea, nausea, vomiting , and diarrhea. Treatments tried include nothing so far. with no relief of symptoms. Sick contacts: unknown. Smoker: quit a month ago Seasonal/environmental allergies: No The ROS is otherwise negative. The patient's pmh, medications, allergies, and past visits are reviewed. PHYSICAL EXAM: BP 132/84 Pulse 90 Temp 36.4 ?C (97.5 ?F) (Tympanic) Resp 16 Wt 110.4 kg (243 lb 6.2 oz) SpO2 98% General appearance: alert, cooperative, pleasant, in no acute distress Head: Normocephalic Eyes: EOM's intact, conjunctiva pink and moist, no icterus, sclera white, non-injected Ears: Right ear: External ear/canal- Normal, TM - clear with good landmarks. Left ear: External ear/canal- Normal, TM - clear with good landmarks Oropharynx:moist without lesions, No erythema, exudates or tonsillar hypertrophy. Heart: Negative. RRR without obvious murmur, gallop, or rubs. No ectopy. Lungs: clear to auscultation, without rales or wheeze, good air exchange History reviewed. No pertinent past medical history. No past surgical history on file. ALLERGIES Benadryl [Diphenhydramine] MEDICATIONS No prescriptions on file. No family history on file. Social History Tobacco Use Smoking status: Never Smokeless tobacco: Never ASSESSMENT/PLAN: 1. URI, acute - ICD9: 465.9, ICD10: J06.9 Supportive therapy suspect viral at this time. No viral testing. . Potential red flag symptoms discussed with the patient. Reviewed appropriate action plan to take if red flag symptoms occur. Patient agreeable to treatment plan. Elaine Spencer APRN.GLENROY [facility] History of Present illness Narrative 09-24-2024 Elaine Spencer APRN.GLENROY - 09/24/2024 3:43 PM EST Note Date & Type Note Facility 09-24-2024 History of Presen t illness Narrative CC: Patient presents with: Cough: Cough, green mucus and sinus pressure x 3 days HPI: Tc Garcia is a 34 year old male who presents to the office with complaint of head congestion and cough, nonproductive for a few days. Symptoms are staying the same. Associated symptoms includes headache, body aches, and fever. Denies wheezing, dyspnea, nausea, vomiting , and diarrhea. Treatments tried include nothing so far. with no relief of symptoms. Sick contacts: unknown. Smoker: quit a month ago Seasonal/environmental allergies: No The ROS is otherwise negative. The patient's pmh, medications, allergies, and past visits are reviewed. PHYSICAL EXAM: BP 132/84 Pulse 90 Temp 36.4 C (97.5 F) (Tympanic) Resp 16 Wt 110.4 kg (243 lb 6.2 oz) SpO2 98% General appearance: alert, cooperative, pleasant, in no acute distress Head: Normocephalic Eyes: EOM's intact, conjunctiva pink and moist, no icterus, sclera white, non-injected Ears: Right ear: External ear/canal- Normal, TM - clear with good landmarks. Left ear: External ear/canal- Normal, TM - clear with good landmarks Oropharynx:moist without lesions, No erythema, exudates or tonsillar hypertrophy. Heart: Negative. RRR without obvious murmur, gallop, or rubs. No ectopy. Lungs: clear to auscultation, without rales or wheeze, good air exchange History reviewed. No pertinent past medical history. No past surgical history on file. ALLERGIES Benadryl [Diphenhydramine] MEDICATIONS No prescriptions on file. No family history on file. Social History Tobacco Use Smoking status: Never Smokeless tobacco: Never ASSESSMENT/PLAN: 1. URI, acute - ICD9: 465.9, ICD10: J06.9 Supportive therapy suspect viral at this time. No viral testing. . Potential red flag symptoms discussed with the patient. Reviewed appropriate action plan to take if red flag symptoms occur. Patient agreeable to treatment plan. Elaine Spencer APRN.GLENROY documented in this encounter [facility] Progress note 08-28-2024 Note Date & Type Note Facility 08-28-2024 Note HNO ID: [id number] Author: THUAN SOTO PA-C Service: ? Author Type: Physician Screen Printer Type: Progress Notes Filed: 08/28/2024 18:04 Note Text: This note was created using AirPOS. Subjective Tc Garcia is a 34 year old male. Patient is a 34-year-old male who complains of worsening right upper quadrant abdominal pain that he has been experiencing for the past 1 day. Patient denies nausea, vomiting or diarrhea. Patient reports no recent fever, chills or myalgia. Patient denies history of GERD, hiatal hernia, gallbladder disease, irritable bowel syndrome, diverticulitis or other GI conditions. Patient states that his previous girlfriend was positive for hepatitis C and he is now concerned that he is developing same. Abdominal Pain Review of Systems Gastrointestinal: Positive for abdominal pain. All other systems reviewed and are negative. Objective BP 155/80 Pulse 85 Temp 36.8 ?C (98.2 ?F) Resp 18 Wt 110.9 kg (244 lb 7.8 oz) SpO2 99% Physical Exam Vitals and nursing note reviewed. Constitutional: Appearance: Normal appearance. He is normal weight. HENT: Head: Normocephalic and atraumatic. Right Ear: External ear normal. Left Ear: External ear normal. Nose: Nose normal. Mouth/Throat: Mouth: Mucous membranes are moist. Pharynx: Oropharynx is clear. Eyes: General: No scleral icterus. Extraocular Movements: Extraocular movements intact. Conjunctiva/sclera: Conjunctivae normal. Pupils: Pupils are equal, round, and reactive to light. Cardiovascular: Rate and Rhythm: Normal rate. Pulses: Normal pulses. Heart sounds: Normal heart sounds. Pulmonary: Effort: Pulmonary effort is normal. Breath sounds: Normal breath sounds. Abdominal: General: Abdomen is flat. Palpations: Abdomen is soft. Tenderness: There is abdominal tenderness. Musculoskeletal: Cervical back: Normal range of motion and neck supple. Skin: General: Skin is warm and dry. Capillary Refill: Capillary refill takes less than 2 seconds. Neurological: General: No focal deficit present. Mental Status: He is alert and oriented to person, place, and time. Psychiatric: Mood and Affect: Mood normal. Behavior: Behavior normal. Thought Content: Thought content normal. Judgment: Judgment normal. Assessment and Plan Physical exam findings as noted above. Urinalysis was performed by staff prior to my evaluating the patient and urinalysis is noted to be completely negative. Patient was immediately advised that he requires evaluation in an emergency department as he will require laboratory testing and CT scan imaging. Patient verbalizes understanding of this recommendation and states he will report to the emergency department at [facility] CLINICAL IMPRESSION: RUQ Abdominal Pain ASSESSMENT/PLAN: 1. Urgency of urination - ICD9: 788.63, ICD10: R39.15 (primary diagnosis) - UA DIP, URINE (POC) 2. RUQ abdominal pain - ICD9: 789.01, ICD10: R10.11 Thuan Soto PA-C [facility] History of Present illness Narrative 08-28-2024 Thuan Soto PA-C - 08/28/2024 5:57 PM EST Note Date & Type Note Facility 08-28-2024 History of Presen t illness Narrative This note was created using [employer]. Subjective Tc Garcia is a 34 year old male. Patient is a 34-year-old male who complains of worsening right upper quadrant abdominal pain that he has been experiencing for the past 1 day. Patient denies nausea, vomiting or diarrhea. Patient reports no recent fever, chills or myalgia. Patient denies history of GERD, hiatal hernia, gallbladder disease, irritable bowel syndrome, diverticulitis or other GI conditions. Patient states that his previous girlfriend was positive for hepatitis C and he is now concerned that he is developing same. Abdominal Pain Review of Systems Gastrointestinal: Positive for abdominal pain. All other systems reviewed and are negative. Objective BP 155/80 Pulse 85 Temp 36.8 C (98.2 F) Resp 18 Wt 110.9 kg (244 lb 7.8 oz) SpO2 99% Physical Exam Vitals and nursing note reviewed. Constitutional: Appearance: Normal appearance. He is normal weight. HENT: Head: Normocephalic and atraumatic. Right Ear: External ear normal. Left Ear: External ear normal. Nose: Nose normal. Mouth/Throat: Mouth: Mucous membranes are moist. Pharynx: Oropharynx is clear. Eyes: General: No scleral icterus. Extraocular Movements: Extraocular movements intact. Conjunctiva/sclera: Conjunctivae normal. Pupils: Pupils are equal, round, and reactive to light. Cardiovascular: Rate and Rhythm: Normal rate. Pulses: Normal pulses. Heart sounds: Normal heart sounds. Pulmonary: Effort: Pulmonary effort is normal. Breath sounds: Normal breath sounds. Abdominal: General: Abdomen is flat. Palpations: Abdomen is soft. Tenderness: There is abdominal tenderness. Musculoskeletal: Cervical back: Normal range of motion and neck supple. Skin: General: Skin is warm and dry. Capillary Refill: Capillary refill takes less than 2 seconds. Neurological: General: No focal deficit present. Mental Status: He is alert and oriented to person, place, and time. Psychiatric: Mood and Affect: Mood normal. Behavior: Behavior normal. Thought Content: Thought content normal. Judgment: Judgment normal. Assessment and Plan Physical exam findings as noted above. Urinalysis was performed by staff prior to my evaluating the patient and urinalysis is noted to be completely negative. Patient was immediately advised that he requires evaluation in an emergency department as he will require laboratory testing and CT scan imaging. Patient verbalizes understanding of this recommendation and states he will report to the emergency department at [facility]. CLINICAL IMPRESSION: RUQ Abdominal Pain ASSESSMENT/PLAN: 1. Urgency of urination - ICD9: 788.63, ICD10: R39.15 (primary diagnosis) - UA DIP, URINE (POC) 2. RUQ abdominal pain - ICD9: 789.01, ICD10: R10.11 Thuan Soto PA-C documented in this encounter [facility] Evaluation note Note Date & Type Note Facility Evaluation note Diagnosis Urgency of urination- Primary RUQ abdominal pain Abdominal pain, right upper quadrant documented in this encounter [facility] Evaluation note Note Date & Type Note Facility Evaluation note Diagnosis URI, acute- Primary Acute upper respiratory infections of unspecified site documented in this encounter [facility] Summary Purpose Family History No Family History Records FoundNo Family History Records Found Advance Directives No Advanced Directives Records FoundNo Advanced Directives Records Found Additional Source Comments Source Comments (unrecognize d section and content) In the event this informatio n is protected by the Federal Confidentiality of Alcohol and Drug Abuse Patient Records regulations: The Federal rules restrict any use of the information to criminally investigate or prosecute any alcohol or drug abuse patient.[facility] the event this information is protected by the Federal Confidentiality of Alcohol and Drug Abuse Patient Records regulations: The Federal rules restrict any use of the information to criminally investigate or prosecute any alcohol or drug abuse patient.[facility] Reason for Visit (unrecogniz ed section and content) Reason Comments Abdominal Pain R side abd pain with fatigue and intermittent fevers x2 months Reason Comments Cough Cough, green mucus a nd sinus pressure x 3 days (unrecognized sect ion and content) No Status Records FoundNo Status Records Found INFORMATION SOURCE (unrecogn ized section and content) DATE CREATED AUTHOR 09/26/2024 [facility] DATE CREATED AUTHOR AUTHOR'S LUZMARIA CORRAL 12/14/2024 [facility] FOR RECORDS PERTAINING TO PATIENTS WHO ARE OR HAVE BEEN ENROLLED IN A CHEMICAL DEPENDENCY/SUBSTANCEABUSE PROGRAM, SOME INFORMATION MAY BE OMITTED. This clinical summary was aggregated from multiple sources. Caution should be exercised in using it in the provision of clinical care. This summary normalizes information from multiple sources, and as a consequence, information in this document may materially change the coding, format and clinical context of patient data. In addition, data may be omitted in some cases. CLINICAL DECISIONS SHOULD BE BASED ON THE PRIMARY CLINICAL RECORDS. [employer] [facility] provides no warranty or guarantee of the accuracy or completeness of information in this document.
--- OUTSIDE RECORDS SUMMARY | 2025-02-17 16:00 | XMS RPT_ITS | CCD ---
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 Name Role Phone Unavailable Primary Care Provider [...] [DIPHENHYDRAMINE] Drug Allergy 5 Hives, Swelling, Anaphylaxis [facility] (1 source) diphenhydrAMINE Drug Allergy 5 [facility] Repository Problems Active Problems Problem Classification Problem [...] CNOV Office Visit (UCWSTR ) TC GARCIA ([id number]) 1990 M Date Time Provider Department 09/24/24 3:45 PM ELAINE SPENCER [facility] During your visit today, we recorded the following information about you: Temperature Pulse Respiration Blood pressure 97.5 degrees 90/minute 16/minute 132/84 Weight 110.4 kg Elaine Spencer, JUNIOR NET DEVELOPER.[employer] ENGLISH TE[employer] 09/24/2024 3:48 PM Signed CC: Patient presents [...] Patient agreeable to treatment plan. Elaine Spencer APRN.[employer]GLISH TE[employer]ER Allergies As of Date: 09/24/2024 Noted Allergy [...] Status:Closed by ELAINE SPENCER on 09/24/24 Normal [facility] Urine Cultureon 09-02-2024 URC CLEAN CATCH SAMPLE. NOT A CATH SAMPLE. Culture exhibits no growth. Normal [facility] Comment on above: Performed By: #### L 400.0001, M100.2200 #### [facility] Laboratory [address] [place], [address] CBC W/Diff, Automatedon 08-22 Absolute Lymph 2.68 X10 3/uL Normal 0.83-4.51 [facility] Comment on above: Performed By: #### L 500.4050, L100.0100, L501.2450 ####[facility] [address] [place], [address] Absolute Neut 4.2 X10 3/uL Normal 2.0-7.7 [facility] Comment on above: Performed By: #### L 500.4050, L100.0100, L501.2450 ####[facility] [address] [place], [address] Basophils/100 WBC (Bld) 0.4 % Normal 0-1 [facility] Comment on above: Performed By: #### L 500.4050, L100.0100, L501.2450 ####[facility] [address] [place], [address] Eosinophils/100 WBC (Bld) 2.7 % Normal 0-5 [facility] Comment on above: Performed By: #### L 500.4050, L100.0100, L501.2450 ####[facility] [address] [place], [address] Erythrocyte distribution width (RBC) [Ratio] 12.5 % Normal 11.6-14.6 [facility] Comment on above: Performed By: #### L 500.4050, L100.0100, L501.2450 ####[facility] [address] [place], [address] Hematocrit (Bld) [Volume fraction] 44.8 % Normal 40-54 [facility] Comment on above: Performed By: #### L 500.4050, L100.0100, L501.2450 ####[facility] [address] [place], [address] Hemoglobin (Bld) [Mass/Vol] 15.3 g/dL Normal 13.0-16.5 [facility] Comment on above: Performed By: #### L 500.4050, L100.0100, L501.2450 ####[facility] [address] [place], [address] IG% 0.500 Normal 0.0-0.9 [facility] Comment on above: Result Comment: IG% - Immature Granulocytes (promyelocytes, myelocytes and metamyelocytes) > 1% indicates that a LEFT SHIFT is Present. Performed By: #### L 500.4050, L100.0100, L501.2450 ####[facility] [address] [place], [address] Lymphocytes/100 WBC (Bld) 33.0 % Normal 19-41 [facility] Comment on above: Performed By: #### L 500.4050, L100.0100, L501.2450 ####[facility] [address] [place], [address] MCH (RBC) [Entitic mass] 29.5 pg Normal 27.0-32.0 [facility] Comment on above: Performed By: #### L 500.4050, L100.0100, L501.2450 ####[facility] [address] [place], [address] MCHC (RBC) [Mass/Vol] 34.2 g/dL Normal 32-36 [facility] Comment on above: Performed By: #### L 500.4050, L100.0100, L501.2450 ####[facility] [address] [place], [address] MCV (RBC) [Entitic vol] 86.5 fL Normal 80-94 [facility] Comment on above: Performed By: #### L 500.4050, L100.0100, L501.2450 ####[facility] [address] [place], [address] Monocytes/100 WBC (Bld) 11.7 % High 0-10 [facility] Comment on above: Performed By: #### L 500.4050, L100.0100, L501.2450 ####[facility] [address] [place], [address] Neutrophils/100 WBC (Bld) 51.7 % Normal 47-70 [facility] Comment on above: Performed By: #### L 500.4050, L100.0100, L501.2450 ####[facility] [address] [place], [address] Nucleated RBC (Bld) [#/Vol] 0 10*3/uL Normal 0-5 [facility] Comment on above: Performed By: #### L 500.4050, L100.0100, L501.2450 ####[facility] [address] [place], [address] Platelet mean volume (Bld) [Entitic vol] 9.7 fL Normal 6.2-12.0 [facility] Comment on above: Performed By: #### L 500.4050, L100.0100, L501.2450 ####[facility] [address] [place], [address] Platelets (Bld) [#/Vol] 349 10*3/uL Normal 150-450 [facility] Comment on above: Performed By: #### L 500.4050, L100.0100, L501.2450 ####[facility] [address] [place], [address] RBC (Bld) [#/Vol] 5.18 10*6/uL Normal 4.6-6.2 [facility] Comment on above: Performed By: #### L 500.4050, L100.0100, L501.2450 ####[facility] [address] [place], [address] RDW SD 39.8 fl Normal 35.1-43.9 [facility] Comment on above: Performed By: #### L 500.4050, L100.0100, L501.2450 ####[facility] [address] [place], [address] WBC (Bld) [#/Vol] 8.1 10*3/uL Normal 4.4-11.0 [facility] Comment on above: Performed By: #### L 500.4050, L100.0100, L501.2450 ####[facility] [address] [place], [address] Comprehensive Metabolic Prof ilon 09-01-2024 Albumin [Mass/Vol] 3.9 g/dL Normal 3.2-5.0 [facility] Comment on above: Performed By: #### L 500.4050, L100.0100, L501.2450 ####[facility] [address] [place], [address] Albumin/Globulin [Mass ratio] 1.1 {ratio} Normal 0.9-2.4 [facility] Comment on above: Performed By: #### L 500.4050, L100.0100, L501.2450 ####[facility] [address] [place], [address] ALK P 150 U/L High 45-117 [facility] Comment on above: Performed By: #### L 500.4050, L100.0100, L501.2450 ####[facility] [address] [place], [address] ALT [Catalytic activity/Vol] 79 U/L High 16-61 [facility] Comment on above: Performed By: #### L 500.4050, L100.0100, L501.2450 ####[facility] [address] [place], [address] AST [Catalytic activity/Vol] 32 U/L Normal 15-37 [facility] Comment on above: Performed By: #### L 500.4050, L100.0100, L501.2450 ####[facility] [address] [place], [address] Bilirubin [Mass/Vol] 0.30 mg/dL Normal 0.20-1.00 [facility] Comment on above: Result Comment: For patients on eltrombopag therapy, use of Dimension [place] TBIL is not recommended. Performed By: #### L 500.4050, L100.0100, L501.2450 ####[facility] [address] [place], [address] BUN/CRE 14.8 RATIO Normal 10-20 [facility] Comment on above: Performed By: #### L 500.4050, L100.0100, L501.2450 ####[facility] [address] [place], [address] CA,Total 8.8 mg/dL Normal 8.5-10.1 [facility] Comment on above: Performed By: #### L 500.4050, L100.0100, L501.2450 ####[facility] [address] [place], [address] Chloride [Moles/Vol] 107 mmol/L Normal 98-107 [facility] Comment on above: Performed By: #### L 500.4050, L100.0100, L501.2450 ####[facility] [address] [place], [address] CO2 [Moles/Vol] 26.0 mmol/L Normal 21.0-32.0 [facility] Comment on above: Performed By: #### L 500.4050, L100.0100, L501.2450 ####[facility] [address] [place], [address] Creatinine [Mass/Vol] 1.08 mg/dL Normal 0.70-1.30 [facility] Comment on above: Result Comment: The validity of the calculated GFR GFRAA in patients over 70 years has not been determined. Clinical correlation is essential. Performed By: #### L 500.4050, L100.0100, L501.2450 ####[facility] [address] [place], [address] ECRCL 123.66 ml/min Normal [facility] Comment on above: Performed By: #### L 500.4050, L100.0100, L501.2450 ####[facility] [address] [place], [address] EST GFR - AA 101 mL/min Normal >60 [facility] Comment on above: Result Comment: Afri can [place] GFR Calc Performed By: #### L 500.4050, L100.0100, L501.2450 ####[facility] [address] [place], [address] GAP 6 Normal 5-15 [facility] Comment on above: Performed By: #### L 500.4050, L100.0100, L501.2450 ####[facility] [address] [place], [address] GFR/1.73 sq M.predicted among non-blacks MDRD (S/P/Bld) [Vol rate/Area] 83 mL/min/{1.73_m2} Normal >60 [facility] Comment on above: Result Comment: Non- GFR Calc Performed By: #### L 500.4050, L100.0100, L501.2450 ####[facility] [address] [place], [address] Globulin (S) [Mass/Vol] 3.4 g/dL Normal 2.2-4.2 [facility] Comment on above: Performed By: #### L 500.4050, L100.0100, L501.2450 ####[facility] [address] [place], [address] Glucose [Mass/Vol] 84 mg/dL Normal 74-106 [facility] Comment on above: Performed By: #### L 500.4050, L100.0100, L501.2450 ####[facility] [address] [place], [address] Potassium [Moles/Vol] 4.0 mmol/L Normal 3.5-5.1 [facility] Comment on above: Performed By: #### L 500.4050, L100.0100, L501.2450 ####[facility] [address] [place], [address] Sodium [Moles/Vol] 139 mmol/L Normal 136-145 [facility] Comment on above: Performed By: #### L 500.4050, L100.0100, L501.2450 ####[facility] [address] [place], [address] T PROT 7.3 g/dL Normal 6.4-8.2 [facility] Comment on above: Performed By: #### L 500.4050, L100.0100, L501.2450 ####[facility] [address] [place], [address] Urea nitrogen [Mass/Vol] 16 mg/dL Normal 7-18 [facility] Comment on above: Performed By: #### L 500.4050, L100.0100, L501.2450 ####[facility] [address] [place], [address] Emergency Department Summary on 09-01-2024 Emergency Department Summary [facility] Medical Records Department [address] [place] [address] Emergency Department Summary 09/01/24 MR#: [id number] Acct: [id number] Name: TC GARCIA SEJAL Rep #: [id number] : 1990 34 From: Sravan Zapien DO [...] for that. Patient denies any urethral discharge [facility] Medical History ADHD PTSD (post-traumatic stress [...] following commands knew that he was at [facility] year is 2024 sensation grossly intact [...] or oth (more content not included)... Normal [facility] Hepatitis B Surface Antibody on 09-01-2024 HEP B Surf Ab Reactive Normal [facility] Comment on above: Order Comment: Reaso n for Exam: pt concernReason for Exam: Hepatitis Screen Result Comment: Non Reactive: Inconsistent with immunity less than <10 mIU/mL Reactive: Consistent with immunity greater than or equal to 10 mIU/mL Performed By: #### L 3890.6100, L3890.6200, L3890.6300 ####[facility] [address] [place], [address] Hepatitis B Surface Antigeno n 09-01-2024 HEP B Surf Ag Non-Reactive Normal Nonreactive [facility] Comment on above: Order Comment: Reaso n for Exam: pt concernReason for Exam: Hepatitis Screen Performed By: #### L 3890.6100, L3890.6200, L3890.6300 ####[facility] [address] [place], [address] Hepatitis C Antibodyon 09-01 Hepatitis C AB Non-Reactive Normal Nonreactive [facility] Comment on above: Order Comment: Reaso n for Exam: pt concernReason for Exam: Hepatitis Screen Result Comment: Non Reactive: < 0.8 Equivocal: >/= 0.8 to < 1.0 Reactive: >/= 1.0 The CDC requires that a reactive/equivocal HCV antibody result be sent out for confirmation. HCV Quant by PCR testing. Performed By: #### L 3890.6100, L3890.6200, L3890.6300 ####[facility] [address] [place], [address] Lipaseon 09-01-2024 Lipase [Catalytic activity/Vol] 51 U/L Normal 13-75 [facility] Comment on above: Result Comment: Kalyan gibbs note: LIPASE revised reference range effective 22. New Lipase methodology. Expected to produce lower values than the previous assay method. NEW Reference Range: 13 - 75 U/L Performed By: #### L 500.4050, L100.0100, L501.2450 ####[facility] [address] [place], [address] Urinalysis, Completeon 09-01 BACTERIA 0 SEEN Normal None Seen [facility] Comment on above: Order Comment: CLEAN CATCH Performed By: #### L 400.0001, M100.2200 #### [facility] [address] [place], [address] EPI,SQUAMOUS 0 SEEN Normal 0-5 [facility] Comment on above: Order Comment: CLEAN CATCH Performed By: #### L 400.0001, M100.2200 #### [facility] [address] [place], [address] Mucus Ql (Urine sed) 0 SEEN Normal [facility] Comment on above: Order Comment: CLEAN CATCH Performed By: #### L 400.0001, M100.2200 #### [facility] [address] [place], [address] RBC 0 SEEN Normal 0-5 [facility] Comment on above: Order Comment: CLEAN CATCH Performed By: #### L 400.0001, M100.2200 #### [facility] [address] [place], [address] WBC 0 SEEN Normal 0-5 [facility] Comment on above: Order Comment: CLEAN CATCH Performed By: #### L 400.0001, M100.2200 #### [facility] [address] [place], [address] CNOVon 08-28-2024 CNOV Office Visit (UCTR ) TC GARCIA ([id number]) 1990 M Date Time Provider Department 08/28/24 5:15 PM THUAN SOTO [facility] During your visit today, we recorded the following information about you: Temperature Pulse Respiration Blood pressure 98.2 degrees 85/minute 18/minute 155/80 Weight 110.9 kg Thuan Soto PA-C 08/28/2024 6:04 PM Signed This note was created using Convrrtriter. Subjective Tc Garcia is a 34 year [...] will report to the emergency department at [facility] after departing this [facility] care facility. CLINICAL IMPRESSION: RUQ Abdominal Pain [...] abdominal pain [R10.11] Order(s):UA DIP, URINE (POC) [9020958] Order #: [id number]. #:[id number] Problem List As Of Date: 08/28/2024 (None) Level of Service: OFFICE/OUTPATIENT [facility] 30 MINUTES [14019] Encounter Status:Closed by THUAN SOTO on 08/28/24 Normal [facility] UA DIP, URINE (POC)on 2024 BILIRUBIN UA (POCT) Negative Negative [facility] CLARITY UA (POCT) Clear [facility] COLOR UA (POCT) Yellow [facility] GLUCOSE UA (POCT) Negative Negative mg/dL [facility] Hemoglobin Ql (U) Negative Negative [facility] KETONE UA (POCT) Negative Negative mg/dL [facility] LEUKOCYTES UA (POCT) Negative Negative [facility] NITRITE UA (POCT) Negative Negative [facility] PH UA (POCT) 6.0 4.5 - 8.0 [facility] Protein Ql (U) Negative Negative mg/dL [facility] SPECIFIC GRAVITY UA (POCT) 1.025 1.005 - 1.030 [facility] UROBILINOGEN UA (POCT) 0.2 Normal E.U./dL [facility] Location:[address], [place], [address] [facility] POINT OF CARE [facility] Lamotrigine (Lamictal) Level on 02-20-2024 LAMOTRIGINE < 1.0 Low 2.0-20.0 [facility] Comment on above: Result Comment: Dete ction Limit = 1.0 Performed at: - [facility] [address], [place], [place] [id number] Oil Processing Technician: Alfonzo Santos MD, Phone: [phone] Performed By: #### L 8466.9098 #### [facility] [address] [place], [address] 12 Lead EKGon 02-15-[address] [facility] Cardiovascular Services [address] [place] [address] 12 Lead EKG 02/15/242028 MR#: [id number] Acct: [id number] Name: TC GARCIA Rep #: [id number] : 1990 33 From: Tigre Yee MD [...] , age undetermined Abnormal ECG Confirmed by Tigre Yee ([id number]), commercial production editor BELINDA MARQUIS ([id number]) on 02/16/2024 11:14:55 AM Referred By: Confirmed By:Tigre Yee 02/16/24 1114 Date Tigre Yee MD CC: Dr. Noah Leach, DO; No Primary Care Physician Signed Normal [facility] Alcohol, Blood (Medical)-Ser umon 02-15-2024 SERUM ETOH < 3.0 Normal [facility] Comment on above: Result Comment: The serum:whole blood ethanol ratio is approximately 1.14 and varies slightly with hematocrit. Medical Alcohol reference interval and critical value in non-tolerant individuals; 50 - 100 Impairment 100 Intoxication 100 - 250 Severe Poisoning 250 - 400 Deep/possible fatal coma Performed By: #### L 505.5000, L500.4050, L100.0100, L501.9100 #### [facility] [address] [place], [address] Brain/Head without Contrasto n 02-15-2024 Brain/Head without Contrast [facility] Imaging Services [address] [place] [address] Brain/Head without Contrast MR#: [id number] Acct: [id number] Name: TC GARCIA Rep #: [id number] : 1990 M 33 From: Trevin Christianson MD PCP: Care Physician,No Primary Status: REG ER Study: Brain/Head without Contrast Date of Exam: 01/21 02/12 Exam# [id number] Ordering Dr: Noah Leach DO [id number] INDICATION: Change in mental status EXAMINATION: CT [...] Noah Leach, DO; No Primary Care Physician Secretary To Board Of Commissioners: Signed Normal [facility] CBC W/Diff, Automatedon 01-21 Absolute Lymph 2.46 X10 3/uL Normal 0.83-4.51 [facility] Comment on above: Performed By: #### L 505.5000, L500.4050, L100.0100, L501.9100 #### [facility] [address] [place], [address] Absolute Neut 6.0 X10 3/uL Normal 2.0-7.7 [facility] Comment on above: Performed By: #### L 505.5000, L500.4050, L100.0100, L501.9100 #### [facility] [address] [place], [address] Basophils/100 WBC (Bld) 0.2 % Normal 0-1 [facility] Comment on above: Performed By: #### L 505.5000, L500.4050, L100.0100, L501.9100 #### [facility] [address] [place], [address] Eosinophils/100 WBC (Bld) 2.1 % Normal 0-5 [facility] Comment on above: Performed By: #### L 505.5000, L500.4050, L100.0100, L501.9100 #### [facility] [address] [place], [address] Erythrocyte distribution width (RBC) [Ratio] 12.4 % Normal 11.6-14.6 [facility] Comment on above: Performed By: #### L 505.5000, L500.4050, L100.0100, L501.9100 #### [facility] [address] [place], [address] Hematocrit (Bld) [Volume fraction] 40.6 % Normal 40-54 [facility] Comment on above: Performed By: #### L 505.5000, L500.4050, L100.0100, L501.9100 #### [facility] [address] [place], [address] Hemoglobin (Bld) [Mass/Vol] 13.4 g/dL Normal 13.0-16.5 [facility] Comment on above: Performed By: #### L 505.5000, L500.4050, L100.0100, L501.9100 #### [facility] [address] [place], [address] IG% 0.300 Normal 0.0-0.9 [facility] Comment on above: Result Comment: IG% - Immature Granulocytes (promyelocytes, myelocytes and metamyelocytes) > 1% indicates that a LEFT SHIFT is Present. Performed By: #### L 505.5000, L500.4050, L100.0100, L501.9100 #### [facility] [address] [place], [address] Lymphocytes/100 WBC (Bld) 25.7 % Normal 19-41 [facility] Comment on above: Performed By: #### L 505.5000, L500.4050, L100.0100, L501.9100 #### [facility] [address] [place], [address] MCH (RBC) [Entitic mass] 28.9 pg Normal 27.0-32.0 [facility] Comment on above: Performed By: #### L 505.5000, L500.4050, L100.0100, L501.9100 #### [facility] [address] [place], [address] MCHC (RBC) [Mass/Vol] 33.0 g/dL Normal 32-36 [facility] Comment on above: Performed By: #### L 505.5000, L500.4050, L100.0100, L501.9100 #### [facility] [address] [place], [address] MCV (RBC) [Entitic vol] 87.7 fL Normal 80-94 [facility] Comment on above: Performed By: #### L 505.5000, L500.4050, L100.0100, L501.9100 #### [facility] [address] [place], [address] Monocytes/100 WBC (Bld) 8.8 % Normal 0-10 [facility] Comment on above: Performed By: #### L 505.5000, L500.4050, L100.0100, L501.9100 #### [facility] [address] [place], [address] Neutrophils/100 WBC (Bld) 62.9 % Normal 47-70 [facility] Comment on above: Performed By: #### L 505.5000, L500.4050, L100.0100, L501.9100 #### [facility] [address] [place], [address] Nucleated RBC (Bld) [#/Vol] 0 10*3/uL Normal 0-5 [facility] Comment on above: Performed By: #### L 505.5000, L500.4050, L100.0100, L501.9100 #### [facility] [address] [place], [address] Platelet mean volume (Bld) [Entitic vol] 9.8 fL Normal 6.2-12.0 [facility] Comment on above: Performed By: #### L 505.5000, L500.4050, L100.0100, L501.9100 #### [facility] [address] [place], [address] Platelets (Bld) [#/Vol] 287 10*3/uL Normal 150-450 [facility] Comment on above: Performed By: #### L 505.5000, L500.4050, L100.0100, L501.9100 #### [facility] [address] [place], [address] RBC (Bld) [#/Vol] 4.63 10*6/uL Normal 4.6-6.2 [facility] Comment on above: Performed By: #### L 505.5000, L500.4050, L100.0100, L501.9100 #### [facility] [address] [place], [address] RDW SD 39.8 fl Normal 35.1-43.9 [facility] Comment on above: Performed By: #### L 505.5000, L500.4050, L100.0100, L501.9100 #### [facility] [address] [place] [place], [address] WBC (Bld) [#/Vol] 9.6 10*3/uL Normal 4.4-11.0 [facility] Comment on above: Performed By: #### L 505.5000, L500.4050, L100.0100, L501.9100 #### [facility] [address] [place], [address] Comprehensive Metabolic Prof [facility] 02-15-2024 Albumin [Mass/Vol] 3.8 g/dL Normal 3.2-5.0 [facility] Comment on above: Performed By: #### L 505.5000, L500.4050, L100.0100, L501.9100 ####[facility] [address] [place], [address] Albumin/Globulin [Mass ratio] 1.2 {ratio} Normal 0.9-2.4 [facility] Comment on above: Performed By: #### L 505.5000, L500.4050, L100.0100, L501.9100 ####[facility] [address] [place], [address] ALK P 135 U/L High 45-117 [facility] Comment on above: Performed By: #### L 505.5000, L500.4050, L100.0100, L501.9100 ####[facility] [address] [place], [address] ALT [Catalytic activity/Vol] 67 U/L High 16-61 [facility] Comment on above: Performed By: #### L 505.5000, L500.4050, L100.0100, L501.9100 ####[facility] [address] [place], [address] AST [Catalytic activity/Vol] 43 U/L High 15-37 [facility] Comment on above: Performed By: #### L 505.5000, L500.4050, L100.0100, L501.9100 ####[facility] [address] [place], [address] Bilirubin [Mass/Vol] 0.20 mg/dL Normal 0.20-1.00 [facility] Comment on above: Result Comment: For patients on eltrombopag therapy, use of Dimension [place] TBIL is not recommended. Performed By: #### L 505.5000, L500.4050, L100.0100, L501.9100 ####[facility] [address] [place], [address] BUN/CRE 18.7 RATIO Normal 10-20 [facility] Comment on above: Performed By: #### L 505.5000, L500.4050, L100.0100, L501.9100 ####[facility] [address] [place], [address] CA,Total 8.6 mg/dL Normal 8.5-10.1 [facility] Comment on above: Performed By: #### L 505.5000, L500.4050, L100.0100, L501.9100 ####[facility] [address] [place], [address] Chloride [Moles/Vol] 111 mmol/L High 98-107 [facility] Comment on above: Performed By: #### L 505.5000, L500.4050, L100.0100, L501.9100 ####[facility] [address] [place], [address] CO2 [Moles/Vol] 24.0 mmol/L Normal 21.0-32.0 [facility] Comment on above: Performed By: #### L 505.5000, L500.4050, L100.0100, L501.9100 ####[facility] [address] [place], [address] Creatinine [Mass/Vol] 1.07 mg/dL Normal 0.70-1.30 [facility] Comment on above: Result Comment: The validity of the calculated GFR GFRAA in patients over 70 years has not been determined. Clinical correlation is essential. Performed By: #### L 505.5000, L500.4050, L100.0100, L501.9100 ####[facility] [address] [place], [address] ECRCL 119.22 ml/min Normal [facility] Comment on above: Performed By: #### L 505.5000, L500.4050, L100.0100, L501.9100 ####[facility] [address] [place], [address] EST GFR - AA 102 mL/min Normal >60 [facility] Comment on above: Result Comment: Afri can [place] GFR Calc Performed By: #### L 505.5000, L500.4050, L100.0100, L501.9100 ####[facility] [address] [place], [address] GAP 3 Low 5-15 [facility] Comment on above: Performed By: #### L 505.5000, L500.4050, L100.0100, L501.9100 ####[facility] [address] [place], [address] GFR/1.73 sq M.predicted among non-blacks MDRD (S/P/Bld) [Vol rate/Area] 85 mL/min/{1.73_m2} Normal >60 [facility] Comment on above: Result Comment: Non- GFR Calc Performed By: #### L 505.5000, L500.4050, L100.0100, L501.9100 ####[facility] [address] [place], [address] Globulin (S) [Mass/Vol] 3.1 g/dL Normal 2.2-4.2 [facility] Comment on above: Performed By: #### L 505.5000, L500.4050, L100.0100, L501.9100 ####[facility] [address] [place], [address] Glucose [Mass/Vol] 92 mg/dL Normal 74-106 [facility] Comment on above: Performed By: #### L 505.5000, L500.4050, L100.0100, L501.9100 ####[facility] [address] [place], [address] Potassium [Moles/Vol] 3.5 mmol/L Normal 3.5-5.1 [facility] Comment on above: Performed By: #### L 505.5000, L500.4050, L100.0100, L501.9100 ####[facility] [address] [place], [address] Sodium [Moles/Vol] 138 mmol/L Normal 136-145 [facility] Comment on above: Performed By: #### L 505.5000, L500.4050, L100.0100, L501.9100 ####[facility] [address] [place], [address] T PROT 6.9 g/dL Normal 6.4-8.2 [facility] Comment on above: Performed By: #### L 505.5000, L500.4050, L100.0100, L501.9100 ####[facility] [address] [place], [address] Urea nitrogen [Mass/Vol] 20 mg/dL High 7-18 [facility] Comment on above: Performed By: #### L 505.5000, L500.4050, L100.0100, L501.9100 ####[facility] [address] [place], [address] Emergency Department Summary on 02-15-2024 Emergency Department Summary [facility] Medical Records Department [address] [place] [address] Emergency Department Summary 02/15/24 MR#: [id number] Acct: [id number] Name: TC GARCIA Rep #: [id number] : 1990 33 From: Noah Leach DO PCP: Care Physician,No Primary Status:REG ER Location: ED HPI HPI - Psych History of Present Illness Chief Complaint: Mental Health Informant: 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 Patient reportedly has a history of psychosis with several hospitalizations at psychiatric facility in [place] reportedly takes Lamictal. Though he tells me his dose is 1/2. The patient tells me that he has been in the [facility] for the past week walking about 100 miles but he does not wish to talk about what he was doing there. He does not wish to tell me where his father lives in [place] for security purposes. Patient reportedly moved to [facility] in May to live with his mother. The patient was seen by crisis side in the community today along with the police. He has had very bizarre behavior believes his mom is poisoning his cigarettes with janitor and cleaner. He informed police that he was with 6 dogs. The patient reportedly tore down mailbox, chased a mailman away, and broke out a car window. Mother does not feel safe with him there. Patient had agitation for them out in the field. Please were called back out and brought him to the emergency department where he was again seen by the same child welfare worker who feels that he is acutely psychotic and would benefit from admission. [facility] Medical History ADHD PTSD (post-traumatic stress [...] psychomotor agitat (more content not included)... Normal [facility] Urinalysis, Completeon 02-14 BACTERIA 0 SEEN Normal None Seen [facility] Comment on above: Order Comment: CLEAN CATCH Performed By: #### L 400.0001 ####[facility] [address] [place], [address] EPI,SQUAMOUS 0 SEEN Normal 0-5 [facility] Comment on above: Order Comment: CLEAN CATCH Performed By: #### L 400.0001 ####[facility] [address] [place], [address] Mucus Ql (Urine sed) 0 SEEN Normal [facility] Comment on above: Order Comment: CLEAN CATCH Performed By: #### L 400.0001 ####[facility] [address] [place], [address] RBC 0 SEEN Normal 0-5 [facility] Comment on above: Order Comment: CLEAN CATCH Performed By: #### L 400.0001 ####[facility] [address] [place], [address] WBC 0 SEEN Normal 0-5 [facility] Comment on above: Order Comment: CLEAN CATCH Performed By: #### L 400.0001 ####[facility] [address] [place], [address] Urine Drug Screen (VISTA)on 02-15-2024 AMPHETAMINES Negative Normal <1000 ng/mL [facility] Comment on above: Performed By: #### L 505.5000, L500.4050, L100.0100, L501.9100 #### [facility] [address] [place], [address] BARBITIURATES Negative Normal < 200 ng/mL [facility] Comment on above: Performed By: #### L 505.5000, L500.4050, L100.0100, L501.9100 #### [facility] [address] [place], [address] BENZODIAZIPINE Negative Normal < 200 ng/mL [facility] Comment on above: Performed By: #### L 505.5000, L500.4050, L100.0100, L501.9100 #### [facility] [address] [place], [address] COCAINE Negative Normal < 300 ng/mL [facility] Comment on above: Performed By: #### L 505.5000, L500.4050, L100.0100, L501.9100 #### [facility] [address] [place], [address] ECSTACY Negative Normal < 500 ng/mL [facility] Comment on above: Performed By: #### L 505.5000, L500.4050, L100.0100, L501.9100 #### [facility] [address] [place], [address] METHADONE Negative Normal < 300 ng/mL [facility] Comment on above: Performed By: #### L 505.5000, L500.4050, L100.0100, L501.9100 #### [facility] [address] [place], [address] OPIATES Negative Normal < 300 ng/mL [facility] Comment on above: Performed By: #### L 505.5000, L500.4050, L100.0100, L501.9100 #### [facility] [address] [place], [address] PCP Negative Normal < 25 ng/mL [facility] Comment on above: Performed By: #### L 505.5000, L500.4050, L100.0100, L501.9100 #### [facility] [address] [place], [address] THC Negative Normal < 50 ng/mL [facility] Comment on above: Performed By: #### L 505.5000, L500.4050, L100.0100, L501.9100 #### [facility] [address] [place], [address] VISTA UDS PH 6 Normal [facility] Comment on above: Performed By: #### L 505.5000, L500.4050, L100.0100, L501.9100 #### [facility] [address] [place], [address] Emergency Department Summary on 01-16-2024 Emergency Department Summary [facility] Medical Records Department [address] [place] [address] Emergency Department Summary 01/16/24 MR#: [id number] Acct: [id number] Name: TC GARCIA Rep #: [id number] : 1990 33 From: Vernon Medina MD [...] wound, new or worsening symptoms. Print Language: Mauritian Disposition Disposition: Home, Self Care Discharge Date/Time: 01/16/24 16:02 What to do if you have Problems For any increased pain, shortness of breath, bleeding, nausea or vomiting, chest pain, or any unexpected problems, contact your Primary Care Provider. Call [facility] ([phone]) or report to the closest Emergency Room. Call 911 if necessary. 01/16/24 0551 Cosigner Signature (if applicable): CC: No Primary Care Physician Signed Normal [facility] Vital Signs Date Time Vital Sign Value Performing Clinician Raineri ana luisay 09-24-2024 15:34-0500 Body temperature 97.5 [degF] Elaine Spencer APRN.[employer] Work Phone: [facility] 09-24-2024 15:34-0500 Body weight 110.4 kg Elaine Spencer APRN.[employer] Work Phone: [facility] 09-24-2024 15:34-0500 Diastolic blood pressure 84 mm[Hg] Elaine Spencer APRN.[employer] Work Phone: [facility] 09-24-2024 15:34-0500 Heart rate 90 /min Elaine Spencer APRN.[employer] Work Phone: [facility] 09-24-2024 15:34-0500 Respiratory rate 16 /min Elaine Spencer APRN.[employer] Work Phone: [facility] 09-24-2024 15:34-0500 SaO2% (BldA) [Mass fraction] 98 % Elaine Spencer APRN.[employer] Work Phone: [facility] 09-24-2024 15:34-0500 Systolic blood pressure 132 mm[Hg] Elaine Spencer APRN.[employer] Work Phone: [facility] 08-28-2024 17:21-0500 Body temperature 98.2 [degF] Thuan Clutter PA-C Work Phone: [facility] 08-28-2024 17:21-0500 Body weight 110.9 kg Thuan Clutter PA-C Work Phone: [facility] 08-28-2024 17:21-0500 Diastolic blood pressure 80 mm[Hg] Thuan Clutter PA-C Work Phone: [facility] 08-28-2024 17:21-0500 Heart rate 85 /min Thuan Clutter PA-C Work Phone: [facility] 08-28-2024 17:21-0500 Respiratory rate 18 /min Thuan Clutter PA-C Work Phone: [facility] 08-28-2024 17:21-0500 SaO2% (BldA) [Mass fraction] 99 % Thuan Clutter PA-C Work Phone: [facility] 08-28-2024 17:21-0500 Systolic blood pressure 155 mm[Hg] Thuan Clutter PA-C Work Phone: [facility] Encounters Encounter Date Encounter Type Care Provider Facility Start: 09-24-2024 End: 09-24-2024 ambulatory Facility:[facility] Start: 09-24-2024 End: 09-24-2024 Patient encounter procedure Elaine Spencer APRN.[employer] Work Phone: [facility] Comment on above: URI, acute (Primary Dx) Start: 09-01-2024 End: 09-01-2024 Emergency department patient visit [facility] Facility:[facility] Start: 08-28-2024 End: 08-28-2024 ambulatory Facility:[facility] Start: 08-28-2024 End: 08-28-2024 Office outpatient new 30 minutes Thuan Clutter PA-C Work Phone: [facility] Comment on above: Urgency of urination (Primary Dx); RUQ abdominal pain Start: 02-15-2024 End: 02-16-2024 Emergency department patient visit Noah Leach Facility:[facility] Start: 01-16-2024 End: 01-16-2024 Emergency department patient visit Vernon Medina Facility:[facility] Procedures Date Procedure Procedure Detail Performing Clinician Start: 08-28-2024 Urnls dip stick/tabl et rgnt auto w/o microscopy Thuan Soto PA-C Work Phone: Plan of Treatment Date Care Activity Detail Author Start: 04-22-2024 Covid-19 Vaccine () Covid-19 Vaccine ( season) [facility] Start: 04-22-2024 Influenza vaccination Influenza Vacc ine (#1) [facility] Start: 2010 Hepatitis B Vaccine (1 of 3 - 19+ 3-dose series) Hepatitis B Vaccine (1 of 3 - 19+ 3-dose series) [facility] Start: 2010 Urine microalbumin profile DTa P,Tdap,Td Vaccine (1 - Tdap) [facility] Start: 2009 Anxiety Screening Anxiety Screening [facility] Start: 2009 Depression Screening Depression Scre ening [facility] Start: 2009 Hepatitis C screening Hepatitis C Sc piedad [facility] Start: 2009 HIV screening HIV Screening Marta penny [facility] Payers Date Payer Category Payer Private Health Insurance HUMANA HU[employer]NA MEDICAID [facility] [id number] 2024-Present [address] [address] [place] [address] Medicaid [id number] 2024 Medicaid [id number] 2024 Self-pay Unknown [id number] Unknown [id number] Unknown [id number] Social History Date Type Detail Facility Start: 08-28-2024 Tobacco smoking stat us NHIS Never smoked tobacco [facility] Start: 08-28-2024 Tobacco use and exposure Smoke less tobacco non-user [facility] Start: 08-28-2024 End: 09-24-2024 History of Social function [facility] Start: 08-28-2024 End: 09-24-2024 Tobacco use panel [facility] Start: 1990 Sex assigned at Not on file [facility] Progress note 09-24-2024 Note Date & Type Note Facility 09-24-2024 Note HNO ID: [id number] Author: ELAINE SPENCER APRN.[employer] Service: ? Author Type: Nurse Practitioner Type: [...] agreeable to treatment plan. Elaine Spencer APRN.GLENROY [facility] History of Present illness Narrative 09-24-2024 [...] Elaine Spencer APRN.GLENROY documented in this encounter [facility] Progress note 08-28-2024 Note Date & Type Note Facility 08-28-2024 Note HNO ID: [id number] Author: THUAN SOTO PA-C Service: ? Author Type: Physician Personal Development Coach Type: Progress Notes Filed: 08/28/2024 18:04 Note Text: This note was created using Mobilinga. Subjective Tc Garcia is a 34 year [...] will report to the emergency department at [facility] after departing this [facility]. CLINICAL IMPRESSION: RUQ Abdominal Pain ASSESSMENT/PLAN: 1. Urgency of urination - ICD9: 788.63, ICD10: R39.15 (primary diagnosis) - UA DIP, URINE (POC) 2. RUQ abdominal pain - ICD9: 789.01, ICD10: R10.11 Thuan Soto PA-C [facility] History of Present illness Narrative 08-28-2024 Thuan Soto PA-C - 08/28/2024 5:57 PM EST Note Date & Type Note Facility 08-28-2024 History of Presen t illness Narrative This note was created using Convrrtriter. Subjective Tc Garcia is a 34 year [...] will report to the emergency department at [facility] after departing this [facility] care facility. CLINICAL IMPRESSION: RUQ Abdominal Pain ASSESSMENT/PLAN: 1. Urgency of urination - ICD9: 788.63, ICD10: R39.15 (primary diagnosis) - UA DIP, URINE (POC) 2. RUQ abdominal pain - ICD9: 789.01, ICD10: R10.11 Thuan Soto PA-C documented in this encounter [facility] Evaluation note Note Date & Type Note Facility Evaluation note Diagnosis Urgency of urination- Primary RUQ abdominal pain Abdominal pain, right upper quadrant documented in this encounter [facility] Evaluation note Note Date & Type Note Facility Evaluation note Diagnosis URI, acute- Primary Acute upper respiratory infections of unspecified site documented in this encounter [facility] Summary Purpose Family History No Family [...] or prosecute any alcohol or drug abuse patient.[facility] the event this information is protected by the Federal Confidentiality of Alcohol and Drug Abuse Patient Records regulations: The Federal rules restrict any use of the information to criminally investigate or prosecute any alcohol or drug abuse patient.[facility] Reason for Visit (unrecogniz ed section and content) Reason Comments Abdominal Pain R side abd pain with fatigue and intermittent fevers x2 months Reason Comments Cough Cough, green mucus a nd sinus pressure x 3 days (unrecognized sect ion and content) No Status Records FoundNo Status Records Found INFORMATION SOURCE (unrecogn ized section and content) DATE CREATED AUTHOR 09/26/2024 [facility] DATE CREATED AUTHOR AUTHOR'S LUZMARIA CORRAL 12/14/2024 [facility] FOR RECORDS PERTAINING TO PATIENTS WHO ARE [...] BE BASED ON THE PRIMARY CLINICAL RECORDS. [employer] [facility]. provides no warranty or guarantee of the accuracy or completeness of information in this document.
[2025-02-17 16:01] LABS: Hematocrit 44.9 % (40-54); Hemoglobin 15.8 g/dL (13.0-16.5); Immature Granulocytes Count 0.030 X10^3/uL (0.0-0.0); Mean Corp Hgb Conc 35.2 g/dL (32-36); Mean Corpuscular Volume 84.1 fL (80-94); Mean Platelet Vol. 10.1 fl (6.2-12.0); NRBC Flagged by Analyzer 0 % (0-5); Platelet Count 302 K/mm3 (150-450); RBC Distribution Width CV 12.3 % (11.6-14.6); RBC Distribution Width SD 37.0 fl (35.1-43.9); Red Blood Count 5.34 M/mm3 (4.6-6.2); White Blood Count 9.4 K/mm3 (4.4-11.0)
[2025-02-17 16:28] LABS: AST(SGOT) 44 U/L (<=37); Alanine Aminotransfer ALT/SGPT 59 U/L (<=46); Albumin, Serum 4.5 g/dL (3.5-5.0); Alcohol, Blood (Medical)-Serum < 10.1 mg/dL (<=10.0); Alkaline Phosphatase 156 U/L (40-129); Anion Gap 15 (5-15); BUN 16 mg/dL (4-19); BUN/Creat Ratio 16.6 RATIO (10-20); Barbiturate Urine NEGATIVE (< 200 ng/mL); Benzodiazepine Urine NEGATIVE (< 200 ng/mL); Calcium,Total 8.7 mg/dL (7.6-11.0); Carbon Dioxide 19.8 mmol/L (21.0-32.0); Chloride 103 mmol/L (98-108); Estimated Creatinine Clearance 126.62 ml/min (50-250); Globulin 3.0 g/dL (2.2-4.2); Glucose 142 mg/dL (70-99); PCP Urine NEGATIVE (< 25 ng/mL); Potassium 3.8 mmol/L (3.3-5.1); THC Urine PRESUMPTIVE POSITIVE (< 50 ng/mL)
--- NOTE | 2025-02-17 16:38 | PCA ---
CALLED CRISIS @ 1632 AND TALKED TO KALPANA. FAXED EVERYTHING OVER @ 5223. KALPANA SAID SOMEONE WILL BE OUT.
--- NOTE | 2025-02-17 16:38 | PCA ---
CALLED CRISIS @ 1632 AND TALKED TO KALPANA. FAXED EVERYTHING OVER @ 4851. KALPANA SAID SOMEONE WILL BE OUT.
--- NOTE | 2025-02-17 17:35 | EKG12_ITS ---
Test Reason : [facility] Blood Pressure : */* mmHG Vent. Rate : 77 BPM Atrial Rate : 77 BPM P-R Int : 160 ms QRS Dur : 74 ms QT Int : 416 ms P-R-T Axes : 73 82 60 degrees QTcB Int : 470 ms Normal sinus rhythm with sinus arrhythmia Septal infarct (cited on or before 15-Feb-2024) Abnormal ECG Confirmed by SHOLA MCFARLANE, CLIFTON ([id number]), editorial manager BRADLEY CAMP ([id number]) on 02/19/2025 6:35:12 AM Referred By: Confirmed By: CLIFTON JOLLEY MD
--- NOTE | 2025-02-17 17:35 | EKG12_ITS ---
Test Reason : [facility] Blood Pressure : */* mmHG Vent. Rate : 77 BPM Atrial Rate : 77 BPM P-R Int : 160 ms QRS Dur : 74 ms QT Int : 416 ms P-R-T Axes : 73 82 60 degrees QTcB Int : 470 ms Normal sinus rhythm with sinus arrhythmia Septal infarct (cited on or before 15-Feb-2024) Abnormal ECG Confirmed by SHOLA MCFARLANE, CLIFTON ([id number]), communications editor BRADLEY CAMP ([id number]) on 02/19/2025 6:35:12 AM Referred By: Confirmed By: CLIFTON JOLLEY MD
[2025-02-18] VITALS: BP 126/62; PULSE 90; RESP 16; TEMP 36.4; O2SAT 97
[2025-02-18 06:00] VITALS: BP 139/78; PULSE 71; RESP 18; O2SAT 100
--- NOTE | 2025-02-18 08:50 | PCA ---
HAMILTON CALLED FROM [facility]ISIS 0847 [facility] WAS REQUESTING AN EKG AND I FAXED IT OVER
--- NOTE | 2025-02-18 08:50 | PCA ---
HAMILTON CALLED FROM CRISIS 0847 [facility] WAS REQUESTING AN EKG AND I FAXED IT OVER
--- NOTE | 2025-02-18 12:26 | PCA ---
CALLED [facility]IS @ 122O AND THEY ARE GO[facility] AND ORDERED HIS LUNCH
--- NOTE | 2025-02-18 12:26 | PCA ---
CALLED [facility]ISIS @ 122O AND THEY ARE GOING TO REACH OUT TO [facility] AGAIN AND ORDERED HIS LUNCH
--- NOTE | 2025-02-18 12:43 | PCA ---
[facility]ISIS CALLED AND THERE WILL NOT BE A BED TODAY, BUT [facility] STILL HAS HIM UNDER REVIEW AND HOPEFULLY A BED FOR HIM TOMORROW.
--- NOTE | 2025-02-18 12:43 | PCA ---
CRISIS CALLED AND THERE WILL NOT BE A BED TODAY, BUT [facility] STILL HAS HIM UNDER REVIEW AND HOPEFULLY A BED FOR HIM TOMORROW.
[2025-02-18 14:00] VITALS: BP 129/82; PULSE 89; RESP 18; O2SAT 99
--- NOTE | 2025-02-18 17:40 | ED.RN ---
Pt pacing in room, voices frustration with having to stay, adamantly declines meds at this time, able to redirect and de-escalate verbally this time
--- NOTE | 2025-02-18 17:40 | ED.RN ---
Pt pacing in room, voices frustration with having to stay, adamantly declines meds at this time, able to redirect and de-escalate verbally this time
--- NOTE | 2025-02-18 19:30 | ED.RN ---
This RN was alerted by RANGEL Lucia that the patient was requesting his money from his wallet in order to give the patient's mother his money for his rent payment. RANGEL Lucia informed this RN that the patient had a lot of worrell in his wallet in his belonging bag in the black boxes. RANGEL Lucia alerted the HRO and security about the money. This RN, Rea, chief security officer Michael and the patient's mother witnessed the patient count the money, the patient was very apprehensive of letting anyone else touch the patient's money. The patient refused to let anyone else count or touch the money. The patient counted his own money and initially stated it was $4,190 in worrell. The patient then gave the patient's mother $620 in order to pay the patient's rent. The patient's mother left with the $620 from the patient and the patient was agreeable to put the rest of his money and wallet in valuable bag. The patient was apprehensive to allow anyone else to touch the bag or count the money. The patient wrote the amount of remaining money into the bag and chief security officer Michael placed the bag in the appropriate place, witnessed by the patient, the patient's mother, this RANGEL, and chief security officer Michael.
--- NOTE | 2025-02-18 19:30 | ED.RN ---
This RN was alerted by RANGEL Lucia that the patient was requesting his money from his wallet in order to give the patient's mother his money for his rent payment. RANGEL Lucia informed this RN that the patient had a lot of worrell in his wallet in his belonging bag in the black boxes. RANGEL Lucia alerted the HRO and security about the money. This RN, Rea, security vehicle patrol officer Michael and the patient's mother witnessed the patient count the money, the patient was very apprehensive of letting anyone else touch the patient's money. The patient refused to let anyone else count or touch the money. The patient counted his own money and initially stated it was $4,190 in worrell. The patient then gave the patient's mother $620 in order to pay the patient's rent. The patient's mother left with the $620 from the patient and the patient was agreeable to put the rest of his money and wallet in valuable bag. The patient was apprehensive to allow anyone else to touch the bag or count the money. The patient wrote the amount of remaining money into the bag and security vehicle patrol officer Michael placed the bag in the appropriate place, witnessed by the patient, the patient's mother, this RANGEL, and security vehicle patrol officer Michael.
--- NOTE | 2025-02-18 19:35 | ED.RN ---
This RN received the patient's prescribed risperidone from the pharmacy and attempted to administer this medication to the patient. The patient refused the medication, stating I am allergic to that medication. This RN educated the patient on the medication and its importance. This RN explained to the patient that he received the same medication yesterday and the patient raised his voice stating, I did not fucking take that medication, I took haldol and ativan yesterday. I am not taking any fucking risperidone. The patient stated, I would take some haldol or ativan but I am not fucking taking risperidone. notified and gave a verbal order for hadol, see MAR documentation.
--- NOTE | 2025-02-18 19:58 | ED.RN ---
This RN administered prescribed Haldol to the patient and the patient stated, well am I only worth haldol to you, haldol is the cheapest fucking drug you could give me, I need something else to calm me down, I need 0.5 of klonopin. This RN educated the patient that we had just given him haldol and should wait for the medication to work before we give him anything else. This RN informed Dr. Zapien about this interaction with the patient. Orders entered for more medication.
--- NOTE | 2025-02-18 20:30 | ED.RN ---
The patient ambulated to the bathroom without distress. This RN heard grunting from the bathroom, but the patient denied needing help at that time. Then the patient came out of the bathroom screaming stating, my jaw hurts, my fucking jaw hurts, I am fucking choking. This RN assisted the patient back to the room and assessed. The patient still screaming and stating that his jaw hurts. Patient treated with ordered medication. notified.
[2025-02-18] MEDS: Ziprasidone IM 20 MG/ML VIAL IM (20:37)
[2025-02-18 22:00] VITALS: BP 128/84; PULSE 75; RESP 18; O2SAT 99
[2025-02-19 06:00] VITALS: BP 146/68; PULSE 76; RESP 16; TEMP 36.7; O2SAT 99
--- NOTE | 2025-02-19 07:55 | PCA ---
CALLED CRISIS AT 0755 FOR AN UPDATE. HAMILTON WILL CALL AT 8 AM AND ASKED [facility] THE STATUS. [facility] DID INFORM ME THAT THEIR NEW ION YEAR HAS BEGUN TODAY AND MORE FUNDING WITH BE AVAILABLE NOW FOR MENTAL HEALTH PATIENTS WITHOUT INSURANCE. THAT IS WONDERFUL NEWS. THEY WILL NOT ALL HAVE TO BE SENT TO [facility]. THEY ARE WORKING ON REFERRING HIM OUT TO OTHER PLACES NOW.
--- NOTE | 2025-02-19 07:55 | PCA ---
CALLED CRISIS AT 0755 FOR AN UPDATE. HAMILTON WILL CALL AT 8 AM AND ASKED [facility] THE STATUS. [facility] DID INFORM ME THAT THEIR NEW ION YEAR HAS BEGUN TODAY AND MORE FUNDING WITH BE AVAILABLE NOW FOR MENTAL HEALTH PATIENTS WITHOUT INSURANCE. THAT IS WONDERFUL NEWS. THEY WILL NOT ALL HAVE TO BE SENT TO [facility]. THEY ARE WORKING ON REFERRING HIM OUT TO OTHER PLACES NOW.
--- NOTE | 2025-02-19 10:36 | PCA ---
CALLED CRISIS @ 1030, HAMILTON IS CALLING [facility] BACK TO SEE IF THE HAVE A BED YET.
--- NOTE | 2025-02-19 10:36 | PCA ---
CALLED CRISIS @ 1030, HAMILTON IS CALLING [facility] BACK TO SEE IF THE HAVE A BED YET.
[2025-02-19 13:33] VITALS: BP 175/114; PULSE 113; RESP 16; TEMP 36.2; O2SAT 99
[2025-02-19 13:35] VITALS: BP 175/114
== END 2025-02-19 14:14 ==
PROVIDERS: Physician Assistant; Emergency Provider Emergency Medicine; Visit Provider Emergency Medicine
DX: F22 Delusional disorders (principal); F31.9 Bipolar disorder, unspecified; F90.9 Attention-deficit hyperactivity disorder, unspecified type; F43.10 Post-traumatic stress disorder, unspecified; F17.210 Nicotine dependence, cigarettes, uncomplicated
CPT/HCPCS: 80053; 80307; 82077; 85025; 93005; 96372; 99283; J3486